=== PATIENT | female | born 1960 | race Caucasian/White ===

== ENCOUNTER 2016-12-30 15:04 | Emergency (ER) | payer OTHER ==
[2016-12-30 15:34] VITALS: BP 140/86
--- OUTSIDE RECORDS SUMMARY | 2016-12-30 16:34 | XMS REPORT | Summary of Care ---
:1960 Author Organization [facility] Address [address] [place] [address] Care Team Providers Name Role Phone Gabrielle Smallwood Primary Care Physician Encounter Date(s): 12/02/16 - 12/02/16 [facility], [address] [facility] [place], [place] [address] Discharge Disposition: 01 Discharged to Home or Self Care Attending Physician: Cori Mendoza DPM Referring Physician: Cori Mendoza DPM Vital Signs Most recent to oldest [Reference Range]: 1 Peripheral Pulse Rate [60-100 bpm] 116 bpm *HI* (12/02/16 10:11 AM) Blood Pressure [90-130/60-90 mmHg] 143/91mmHg *HI* (12/02/16 10:11 AM) Mean Arterial Pressure, Cuff 108 mmHg (12/02/16 10:11 AM) Most recent to oldest [Reference Range]: 1 Height/Length Measured 175 cm (12/02/16 10:11 AM) Weight Dosing 139.00 kg1 (12/02/16 10:15 AM) Weight Measured 139 kg (12/02/16 10:11 AM) BSA Measured 2.47 m2 (12/02/16 10:11 AM) Body Mass Index Measured 45.39 kg/m2 (12/02/16 10:11 AM) 1Result Comment: This result was because the dosing weight was either not entered or it is>30 days old. This result is based off: Weight Measured December 02, 2016 10:11:00 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 by Azeb Ch LPN Problem List Condition Effective Dates Status Health Status Informant Anxiety(Confirmed) Active patient Arthritis(Confirmed) Active patient Asthma(Confirmed) Active patient Depression(Confirmed) Active Fibromyalgia(Confirmed) Active patient Migraine(Confirmed) Active patient Wheezing(Confirmed) Active Allergies, Adverse Reactions, Alerts Substance Reaction Severity Status codeine Nausea Active Dilaudid Rash Severe Active gabapentin nausea Severe Active Toradol Nausea Severe Active Medications albuterol 2.5 mg/3 mL (0.083%) inhalation solution 3 mL, Inhale, q6hr, # 360 mL, 2 Refill(s), Start Date: 10/06/16 14:00:04 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, Pharmacy: [facility] Start Date: 10/06/16 Stop Date: 01/04/17 Status: Orderedalbuterol 2.5 mg/3 mL (0.083%) inhalation solution 3 mL, Inhale, q6hr, X 30 days, # 25 EA, 0 Refill(s), Start Date: 06/09/16 16:07: 01 CDT, Pharmacy: [facility] Start Date: 06/09/16 Stop Date: 10/06/16 Status: Completedalbuterol 2.5 mg/3 mL (0.083%) inhalation solution 3 mL, Inhale, q6hr, # 25 EA, 0 Refill(s), Start Date: 12/16/15 20:03:00 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 Start Date: 12/16/15 Stop Date: 06/09/16 Status: Discontinuedalbuterol HFA puff(s), Inhale, QID, 0 Refill(s), Start Date: 09/25/15 13:27:00 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 Start Date: 09/25/15 Stop Date: 03/10/16 Status: Completedamitriptyline 10 mg oral tablet 1 tab(s), Oral, HS, 0 Refill(s), Start Date: 07/26/14 8:18:00 CDT Start Date: 07/26/14 Stop Date: 09/21/16 Status: CompletedAugmentin 875 mg-125 mg oral tablet 875 mg, Oral, q12hr interval, # 20 tab(s), 0 Refill(s), Start Date: 07/20/16 17: 32:00 CDT, Pharmacy: [facility] Start Date: 07/20/16 Stop Date: 07/30/16 Status: DiscontinuedAzithromycin 5 Day Dose Pack 250 mg oral tablet 1 packet(s), Oral, Per Package Label, as directed on package labeling, X 5 days , # 6 tab(s), 0 Refill(s), Start Date: 12/01/16 15:05:00 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 Special Instructions: as directed on package labeling Start Date: 12/01/16 Stop Date: 12/06/16 Status: OrderedbusPIRone 10 mg oral tablet 1 tab(s), Oral, TID, # 90 tab(s), 0 Refill(s), Start Date: 03/10/16 13:27:00 CDT Start Date: 03/10/16 Status: Orderedcephalexin 500 mg oral capsule 1 cap(s), Oral, QID, # 40 cap(s), 0 Refill(s), Start Date: 09/21/16 15:32:00 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 , Pharmacy: [facility] Start Date: 09/21/16 Stop Date: 10/13/16 Status: Completedclindamycin 300 mg oral capsule 1 cap(s), Oral, q6hr, # 28 cap(s), 0 Refill(s), Start Date: 12/17/14 14:47:00 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 Start Date: 12/17/14 Stop Date: 02/25/15 Status: Completedclotrimazole 1% topical cream 1 maxwell, Topical, BID, # 30 gm, 0 Refill(s), Start Date: 06/03/16 18:02:00 CDT Start Date: 06/03/16 Stop Date: 06/04/16 Status: Completedcyclobenzaprine 10 mg, Oral, BID, 0 Refill(s) Start Date: 06/01/14 Stop Date: 07/27/16 Status: CompletedDexilant 60 mg oral delayed release capsule 1 cap(s), Oral, Daily, # 30 cap(s), 5 Refill(s), Start Date: 04/28/16 16:03:00 CDT, Pharmacy: [facility] Start Date: 04/28/16 Stop Date: 06/09/16 Status: Completeddiclofenac 1% topical gel 1 maxwell, Topical, QID, # 100 gm, 0 Refill(s), Start Date: 06/27/15 10:56:00 CDT, Pharmacy: [facility] Start Date: 06/27/15 Stop Date: 03/10/16 Status: CompletedDilaudid 2 mg oral tablet 1 tab(s), Oral, q8hr interval, PRN for pain, # 12 tab(s), 0 Refill(s), Start Date: 10/22/16 19:09:00 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 Start Date: 10/22/16 Stop Date: 10/31/16 Status: CompletedDilaudid 2 mg oral tablet 1 tab(s), Oral, q4hr, PRN for pain, # 12 tab(s), 0 Refill(s), Start Date: 16:54:00 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 Start Date: 10/31/16 Stop Date: 12/01/16 Status: CompletedDME - Nebulizer 1 EA, NEB, 12/16/15, Criteria in Order Comments Met?, # 1 EA, 0 Refill(s), 20:03:00 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, Supply Start Date: 12/16/15 Status: OrderedFlexeril 10 mg oral tablet 1 tab(s), Oral, BID, Start Date: 07/27/16 15:49:00 CDT Start Date: 07/27/16 Status: OrderedHYDROcodone-acetaminophen 5 mg-325 mg oral tablet 1 tab(s), Oral, q6hr, X 3 days, # 12 tab(s), 0 Refill(s), Start Date: 02/25/15 13:13:00 CDT Start Date: 02/25/15 Stop Date: 02/28/15 Status: CompletedHYDROcodone-acetaminophen 5 mg-325 mg oral tablet 2 tab(s), Oral, q6hr, X 3 days, # 15 tab(s), 0 Refill(s), Start Date: 11/26/14 14:42:00 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 Start Date: 11/26/14 Stop Date: 11/29/14 Status: CompletedHYDROcodone-acetaminophen 5 mg-325 mg oral tablet 1 tab(s), Oral, q6hr interval, PRN for pain, X 3 days, # 12 tab(s), 0 Refill(s) , Start Date: 01/13/16 19:53:00 CDT Start Date: 01/13/16 Stop Date: 01/16/16 Status: CompletedHYDROcodone-acetaminophen 5 mg-325 mg oral tablet 1 tab(s), Oral, q6hr, PRN for pain, # 12 tab(s), 0 Refill(s), Start Date: 21:57:00 CDT Start Date: 01/22/15 Stop Date: 01/24/15 Status: CompletedHYDROcodone-acetaminophen 5mg-325mg oral tablet 1 tab(s), Oral, TID, PRN for pain, X 3 days, # 9 tab(s), 0 Refill(s), Start Date : 07/27/16 15:31:00 CDT Start Date: 07/27/16 Stop Date: 07/30/16 Status: CompletedHYDROcodone-acetaminophen 5mg-325mg oral tablet 1 tab(s), Oral, q4hr, PRN pain moderate 4-7, X 5 days, # 15 tab(s), 0 Refill(s) , Start Date: 10/22/16 20:47:00 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 Start Date: 10/22/16 Stop Date: 10/27/16 Status: Completedhydrocodone-acetaminophen 5mg-325mg oral tablet 2 tab(s), Oral, q4hr, PRN for pain, # 20 tab(s), 0 Refill(s), Start Date: 17:11:00 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 Start Date: 10/31/16 Stop Date: 11/03/16 Status: Discontinuedibuprofen 800 mg oral tablet 1 tab(s), Oral, TID, PRN for pain, # 30 tab(s), 0 Refill(s), Start Date: 19:39:00 CDT Start Date: 03/13/14 Stop Date: 09/10/14 Status: Completedibuprofen 800 mg oral tablet 1 tab(s), Oral, TID, # 30 tab(s), 0 Refill(s), Start Date: 09/25/15 13:32:00 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 , Pharmacy: [facility] Start Date: 09/25/15 Stop Date: 03/10/16 Status: Completedibuprofen 800 mg oral tablet 1 tab(s), Oral, q6hr interval, PRN for pain, # 60 tab(s), 0 Refill(s), Start Date: 09/10/14 14:35:47 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, 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) Start Date: 09/10/14 Stop Date: 10/08/14 Status: Completedibuprofen 800 mg oral tablet 1 tab(s), Oral, q6hr interval, PRN for pain, # 30 tab(s), 0 Refill(s), Start Date: 10/08/14 11:29:36 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, Pharmacy: [facility] [id number] Start Date: 10/08/14 Stop Date: 10/29/14 Status: Completedibuprofen 800 mg oral tablet 1 tab(s), Oral, TID, PRN for pain, # 30 tab(s), 0 Refill(s), Start Date: 10:05:00 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, Pharmacy: [facility] Start Date: 12/05/14 Stop Date: 03/10/16 Status: Completedibuprofen 800 mg oral tablet 1 tab(s), Oral, TID, # 30 tab(s), 0 Refill(s), Start Date: 08/26/16 8:54:00 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 , Pharmacy: [facility] Start Date: 08/26/16 Stop Date: 12/01/16 Status: Completedindomethacin 50 mg oral capsule 1 cap(s), Oral, TID, PRN for pain, X 10 days, # 30 cap(s), 0 Refill(s), Start Date: 10/13/16 17:12:00 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 Start Date: 10/13/16 Stop Date: 10/23/16 Status: CompletedLevaquin 750 mg oral tablet 1 tab(s), Oral, q24hr interval, # 7 tab(s), 0 Refill(s), Start Date: 04/28/16 15 :56:00 CDT, Pharmacy: [facility] Start Date: 04/28/16 Stop Date: 06/09/16 Status: Completedlisinopril 10 mg oral tablet 1 tab(s), Oral, Daily, # 30 tab(s), 5 Refill(s), Start Date: 10/22/16 16:07:58 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, Pharmacy: [facility] Start Date: 10/22/16 Status: Orderedlisinopril 10 mg oral tablet 1 tab(s), Oral, Daily, # 30 tab(s), 5 Refill(s), Start Date: 04/28/16 15:59:00 CDT, Pharmacy: [facility] Start Date: 04/28/16 Stop Date: 10/22/16 Status: CompletedMedrol Dosepak 4 mg oral tablet 1 packet(s), Oral, Per Package Label, as directed on package labeling, X 6 days , # 21 tab(s), 0 Refill(s), Start Date: 10/13/16 17:12:00 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 Special Instructions: as directed on package labeling Start Date: 10/13/16 Stop Date: 10/19/16 Status: Completedmeloxicam 15 mg, Oral, Daily, 0 Refill(s) Start Date: 06/01/14 Stop Date: 07/27/16 Status: Completedmeloxicam 15 mg oral tablet 1 tab(s), Oral, Daily, Start Date: 07/27/16 15:49:00 CDT Start Date: 07/27/16 Status: OrderedNorco 5 mg-325 mg oral tablet See Instructions, 1-2tab(s) Oral q4-6hr prn pain, # 60 tab(s), 0 Refill(s), Start Date: 05/03/15 9:04:44 CDT Special Instructions: 1-2tab(s) Oral q4-6hr prn pain Start Date: 05/03/15 Stop Date: 05/13/15 Status: CompletedNorco 5 mg-325 mg oral tablet See Instructions, 1-2 po Q 4-6 hrs prn pain, # 60 tab(s), 0 Refill(s), Start Date: 09/16/16 12:26:21 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, Pharmacy: [facility] Special Instructions: 1-2 po Q 4-6 hrs prn pain Start Date: 09/16/16 Stop Date: 09/23/16 Status: CompletedNorco 5 mg-325 mg oral tablet 2 tab(s), Oral, q6hr, PRN for pain, # 30 tab(s), 0 Refill(s), Start Date: 10:14:00 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, Pharmacy: [facility] [id number] Start Date: 10/01/14 Stop Date: 10/08/14 Status: CompletedNorco 5 mg-325 mg oral tablet 1 tab(s), Oral, q4hr, PRN for pain, # 10 tab(s), 0 Refill(s), Start Date: 22:44:00 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 Start Date: 08/20/15 Stop Date: 08/24/15 Status: CompletedNorco 5 mg-325 mg oral tablet See Instructions, 1 po Q 4-6 hrs prn pain, # 30 tab(s), 0 Refill(s), Start Date : 09/08/16 10:59:35 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, Pharmacy: [facility] Special Instructions: 1 po Q 4-6 hrs prn pain Start Date: 09/08/16 Stop Date: 09/14/16 Status: CompletedNorco 5 mg-325 mg oral tablet 1 tab(s), Oral, q4hr, # 30 tab(s), 0 Refill(s), Start Date: 06/05/15 11:12:00 CDT, Pharmacy: [facility] Start Date: 06/05/15 Stop Date: 06/26/15 Status: DiscontinuedNorco 5 mg-325 mg oral tablet 1 tab(s), Oral, q6hr, # 40 tab(s), 0 Refill(s), Start Date: 08/17/16 12:42:00 CDT, Pharmacy: [facility] Start Date: 08/17/16 Stop Date: 08/26/16 Status: CompletedNorco 5 mg-325 mg oral tablet See Instructions, 1-2tab(s) Oral q4-6hr prn pain, # 60 tab(s), 0 Refill(s), Start Date: 04/23/15 11:36:00 CDT Special Instructions: 1-2tab(s) Oral q4-6hr prn pain Start Date: 04/23/15 Stop Date: 05/03/15 Status: CompletedNorco 5 mg-325 mg oral tablet 1 tab(s), Oral, q6hr interval, PRN pain moderate 4-7, Use sparingly, # 60 tab(s) , 0 Refill(s), Start Date: 09/23/16 14:55:00 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, Pharmacy: [facility] Special Instructions: Use sparingly Start Date: 09/23/16 Stop Date: 10/01/16 Status: DiscontinuedNorco 5 mg-325 mg oral tablet See Instructions, 1-2 tab(s) Oral q6hr PRN pain, # 30 tab(s), 0 Refill(s), Start Date: 08/27/14 10:45:01 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, other reason (Rx) Special Instructions: 1-2 tab(s) Oral q6hr PRN pain Start Date: 08/27/14 Stop Date: 09/03/14 Status: CompletedNorco 5 mg-325 mg oral tablet 1 tab(s), Oral, q4hr, PRN for pain, X 3 days, # 15 tab(s), 0 Refill(s), Start Date: 09/04/16 17:08:00 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 Start Date: 09/04/16 Stop Date: 09/07/16 Status: CompletedNorco 5 mg-325 mg oral tablet See Instructions, 1 po Q 4-6 hrs prn pain, # 12 tab(s), 0 Refill(s), Start Date : 09/14/16 11:50:00 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, Pharmacy: [facility] Special Instructions: 1 po Q 4-6 hrs prn pain Start Date: 09/14/16 Stop Date: 09/16/16 Status: CompletedNorco 5 mg-325 mg oral tablet 1 tab(s), Oral, q6hr, # 40 tab(s), 0 Refill(s), Start Date: 08/07/16 11:55:00 CDT, Pharmacy: [facility] Start Date: 08/07/16 Stop Date: 08/17/16 Status: CompletedNorco 5 mg-325 mg oral tablet 1 tab(s), Oral, q4hr, # 30 tab(s), 0 Refill(s), Start Date: 07/17/15 10:26:00 CDT, Pharmacy: [facility] Start Date: 07/17/15 Stop Date: 09/25/15 Status: CompletedNorco 5 mg-325 mg oral tablet 1 tab(s), Oral, q6hr, PRN for pain, # 30 tab(s), 0 Refill(s), Start Date: 11:02:00 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, Pharmacy: [facility] Start Date: 10/29/14 Stop Date: 12/05/14 Status: CompletedNorco 5 mg-325 mg oral tablet See Instructions, 1-2tab(s) Oral q4-6hr prn pain, # 50 tab(s), 0 Refill(s), Start Date: 05/13/15 9:54:50 CDT, Pharmacy: [facility] Special Instructions: 1-2tab(s) Oral q4-6hr prn pain Start Date: 05/13/15 Stop Date: 05/20/15 Status: CompletedNorco 5 mg-325 mg oral tablet 1 tab(s), Oral, q6hr interval, not to exceed 8 tablets/day, # 40 tab(s), 0 Refill(s), Start Date: 10/01/16 11:17:00 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, Pharmacy: [facility] Special Instructions: not to exceed 8 tablets/day Start Date: 10/01/16 Stop Date: 10/13/16 Status: CompletedNorco 5 mg-325 mg oral tablet 2 tab(s), Oral, q6hr, PRN for pain, # 45 tab(s), 0 Refill(s), Start Date: 11:52:05 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, other reason (Rx) Start Date: 10/15/14 Stop Date: 10/29/14 Status: CompletedNorco 5 mg-325 mg oral tablet 1 tab(s), Oral, q6hr interval, PRN for pain, # 30 tab(s), 0 Refill(s), Start Date: 06/17/15 10:34:42 CDT, Pharmacy: [facility] Start Date: 06/17/15 Stop Date: 06/26/15 Status: DiscontinuedNorco 5 mg-325 mg oral tablet 1 tab(s), Oral, q6hr interval, # 30 tab(s), 0 Refill(s), Start Date: 10/15/16 16 :23:00 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, Pharmacy: [facility] Start Date: 10/15/16 Stop Date: 10/31/16 Status: CompletedNorco 5 mg-325 mg oral tablet 1 tab(s), Oral, q6hr, # 40 tab(s), 0 Refill(s), Start Date: 07/30/16 10:06:00 CDT, Pharmacy: [facility] Start Date: 07/30/16 Stop Date: 08/07/16 Status: CompletedNorco 5 mg-325 mg oral tablet 1 tab(s), Oral, q6hr, PRN for pain, # 30 tab(s), 0 Refill(s), Start Date: 11:00:00 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, Pharmacy: [facility] [id number] Start Date: 10/29/14 Stop Date: 10/29/14 Status: DiscontinuedNorco 5 mg-325 mg oral tablet 2 tab(s), Oral, q6hr, PRN for pain, # 30 tab(s), 0 Refill(s), Start Date: 11:30:02 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, other reason (Rx) Start Date: 10/08/14 Stop Date: 10/15/14 Status: CompletedNorco 5 mg-325 mg oral tablet See Instructions, 1-2 tab(s) Oral q6hr PRN pain, # 40 tab(s), 0 Refill(s), Start Date: 09/03/14 15:24:06 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, other reason (Rx) Special Instructions: 1-2 tab(s) Oral q6hr PRN pain Start Date: 09/03/14 Stop Date: 10/29/14 Status: CompletedNorco 5 mg-325 mg oral tablet See Instructions, 1-2 tab(s) Oral q4-6hr PRN pain, # 30 tab(s), 0 Refill(s), Start Date: 08/20/14 15:25:27 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, other reason (Rx) Special Instructions: 1-2 tab(s) Oral q4-6hr PRN pain Start Date: 08/20/14 Stop Date: 08/27/14 Status: CompletedNorco 5 mg-325 mg oral tablet 1 tab(s), Oral, q6hr, # 30 tab(s), 0 Refill(s), Start Date: 08/26/16 8:54:54 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 , Pharmacy: [facility] Start Date: 08/26/16 Stop Date: 09/08/16 Status: CompletedNorco 5 mg-325 mg oral tablet See Instructions, 1-2 tab(s) Oral q4-6hr PRN pain, # 30 tab(s), 0 Refill(s), Start Date: 08/14/14 8:40:00 CDT Special Instructions: 1-2 tab(s) Oral q4-6hr PRN pain Start Date: 08/14/14 Stop Date: 08/20/14 Status: CompletedNorco 5 mg-325 mg oral tablet 1 tab(s), Oral, q4hr, PRN for pain, # 40 tab(s), 0 Refill(s), Start Date: 11:30:00 CDT, Pharmacy: [facility] Start Date: 06/10/15 Stop Date: 06/17/15 Status: Completedomeprazole 40 mg oral delayed release capsule 1 cap(s), Oral, Daily, 0 Refill(s), Start Date: 06/09/16 15:12:00 CDT Start Date: 06/09/16 Stop Date: 08/17/16 Status: Discontinuedomeprazole 40 mg oral delayed release capsule 1 cap(s), Oral, Daily, # 30 cap(s), 4 Refill(s), Start Date: 03/10/16 14:24:00 CDT, Pharmacy: [facility] Start Date: 03/10/16 Stop Date: 04/28/16 Status: Discontinuedomeprazole 40 mg oral delayed release capsule 1 cap(s), Oral, Daily, # 30 cap(s), 3 Refill(s), Start Date: 08/17/16 13:57:00 CDT, Pharmacy: [facility] Start Date: 08/17/16 Stop Date: 12/15/16 Status: Orderedorphenadrine 100 mg oral tablet, extended release 1 tab(s), Oral, BID, # 10 tab(s), 0 Refill(s), Start Date: 07/10/15 19:44:00 CDT Start Date: 07/10/15 Stop Date: 03/10/16 Status: Completedpenicillin V potassium 500 mg oral tablet 1 tab(s), Oral, TID, X 7 days, # 21 tab(s), 0 Refill(s), Start Date: 11/26/14 14 :42:00 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 Start Date: 11/26/14 Stop Date: 12/03/14 Status: Completedpenicillin V potassium 500 mg oral tablet 1 tab(s), Oral, TID, # 30 tab(s), 0 Refill(s), Start Date: 01/13/16 19:53:00 CDT Start Date: 01/13/16 Stop Date: 03/10/16 Status: CompletedPercocet 5/325 oral tablet 1 tab(s), Oral, q4hr, PRN for pain, Do not work or drive with this medication, # 6 tab(s), 0 Refill(s), Start Date: 12/17/14 14:47:00 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 Special Instructions: Do not work or drive with this medication Start Date: 12/17/14 Stop Date: 12/19/14 Status: CompletedPercocet 5/325 oral tablet 1 tab(s), Oral, q6hr, PRN for pain, X 3 days, # 12 tab(s), 0 Refill(s), Start Date: 07/21/16 20:10:00 CDT Start Date: 07/21/16 Stop Date: 07/24/16 Status: CompletedPercocet 5/325 oral tablet 2 tab(s), Oral, q4hr, # 60 tab(s), 0 Refill(s), Start Date: 05/20/15 8:25:00 CDT , Pharmacy: [facility] Start Date: 05/20/15 Stop Date: 05/29/15 Status: CompletedPercocet 5/325 oral tablet 2 tab(s), Oral, q4hr, # 40 tab(s), 0 Refill(s), Start Date: 05/29/15 14:40:46 CDT, Pharmacy: [facility] Start Date: 05/29/15 Stop Date: 06/05/15 Status: DiscontinuedPercocet 5/325 oral tablet 1 tab(s), Oral, q6hr interval, X 3 days, # 12 tab(s), 0 Refill(s), Start Date: 05/17/15 14:18:00 CDT Start Date: 05/17/15 Stop Date: 05/20/15 Status: Completedpramipexole 0.125 mg oral tablet 1 tab(s), Oral, HS, may increase in 1 week to two tabs., # 30 tab(s), 1 Refill(s ), Start Date: 07/17/16 14:03:00 CDT, Pharmacy: [facility] Special Instructions: may increase in 1 week to two tabs. Start Date: 07/17/16 Stop Date: 09/04/16 Status: CompletedpredniSONE 10 mg oral tablet See Instructions, 40mg daily x 3d, 30mg daily x 3d, 20mg daily x 3d, 10mg daily x 3d, # 30 tab(s), 0 Refill(s), Start Date: 07/20/16 17:33:00 CDT, Pharmacy: [facility] Special Instructions: 40mg daily x 3d, 30mg daily x 3d, 20mg daily x 3d, 10mg daily x 3d Start Date: 07/20/16 Stop Date: 07/30/16 Status: DiscontinuedpredniSONE 10 mg oral tablet See Instructions, 40 mg qd x 3d, 30 mg qd x 3d, 20 mg qd x 3d, 10 mg qd x 3d. with food, # 30 QS, 0 Refill(s), Start Date: 04/28/16 15:56:00 CDT, Pharmacy: [facility] Special Instructions: 40 mg qd x 3d, 30 mg qd x 3d, 20 mg qd x 3d, 10 mg qd x 3d. with food Start Date: 04/28/16 Stop Date: 06/09/16 Status: CompletedpredniSONE 20 mg oral tablet 2 tab(s), Oral, Daily, X 5 days, # 10 tab(s), 0 Refill(s), Start Date: 12/01/16 15:05:00 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 Start Date: 12/01/16 Stop Date: 12/06/16 Status: OrderedpredniSONE 50 mg oral tablet 1 tab(s), Oral, Daily, # 4 tab(s), 0 Refill(s), Start Date: 04/18/16 17:03:00 CDT Start Date: 04/18/16 Stop Date: 04/28/16 Status: Completedpromethazine-codeine 6.25 mg-10 mg/5 mL oral syrup 5 mL, Oral, HS, PRN for cough, # 30 mL, 0 Refill(s), Start Date: 04/17/16 17:04: 00 CDT Start Date: 04/17/16 Stop Date: 04/22/16 Status: CompletedReadi-Cat 2 oral suspension See Instructions, Oral ONETIME, # 2 bottles, 0 Refill(s), Start Date: 06/29/16 10:57:00 CDT, Pharmacy: [facility] Special Instructions: Oral ONETIME Start Date: 06/29/16 Stop Date: 07/27/16 Status: CompletedRequip 0.25 mg oral tablet 1 tab(s), Oral, Daily, take one at hs about 30 minutes prior to hs, may increase to 2 po at night after 3-5 days. with food, # 45 tab(s), 3 Refill(s) , Start Date: 06/09/16 16:13:00 CDT, Pharmacy: [facility] Special Instructions: take one at hs about 30 minutes prior to hs, may increase to 2 po at night after 3-5 days. with food Start Date: 06/09/16 Stop Date: 09/04/16 Status: CompletedSingulair 10 mg oral tablet 1 tab(s), Oral, Daily, # 30 tab(s), 5 Refill(s), Start Date: 06/09/16 16:23:00 CDT, [facility] Start Date: 06/09/16 Status: OrderedSpiriva 18 mcg inhalation capsule 1 cap(s), Inhale, Daily, use two inhalations of one capsule for each dose, X 30 days, # 30 EA, 2 Refill(s), Start Date: 05/29/16 14:08:00 CDT, [facility] Special Instructions: use two inhalations of one capsule for each dose Start Date: 05/29/16 Stop Date: 08/27/16 Status: CompletedSpiriva 18 mcg inhalation capsule 1 cap(s), Inhale, Daily, use two inhalations of one capsule for each dose, # 30 cap(s), 5 Refill(s), Start Date: 08/27/16 7:35:04 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, Pharmacy: [facility] Special Instructions: use two inhalations of one capsule for each dose Start Date: 08/27/16 Stop Date: 02/23/17 Status: OrderedSpiriva Respimat 2.5 mcg/inh inhalation aerosol 2 puff(s), Inhale, Daily, # 1 EA, 3 Refill(s), Start Date: 05/29/16 13:05:08 CDT , Pharmacy: [facility], [id number], 06/16/17 Start Date: 05/29/16 Stop Date: 06/09/16 Status: CompletedSpiriva Respimat 2.5 mcg/inh inhalation aerosol 2 puff(s), Inhale, Daily, # 4 gm, 0 Refill(s), Start Date: 04/28/16 16:19:00 CDT , samples given to patient (Rx), [id number], 06/16/17 Start Date: 04/28/16 Stop Date: 05/29/16 Status: CompletedSymbicort 160 mcg-4.5 mcg/inh inhalation aerosol 2 puff(s), Inhale, BID, # 1 EA, 3 Refill(s), Start Date: 03/27/16 13:01:00 CDT, Pharmacy: [facility] Start Date: 03/27/16 Stop Date: 07/25/16 Status: OrderedtraMADol 50 mg oral tablet 1 tab(s), Oral, q4hr, PRN for pain, # 24 tab(s), 0 Refill(s), Start Date: 16:24:00 CDT Start Date: 06/01/14 Stop Date: 09/10/14 Status: CompletedtraMADol 50 mg oral tablet 1 tab(s), Oral, q4hr interval, # 30 tab(s), 0 Refill(s), Start Date: 12/02/16 11 :05:00 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, Pharmacy: [facility] Start Date: 12/02/16 Status: OrderedtraMADol 50 mg oral tablet See Instructions, PRN for pain, 1-2 tab(s) Oral q4-6hr interval, # 45 tab(s), 1 Refill(s), Start Date: 11/06/14 10:10:50 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, 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) Special Instructions: 1-2 tab(s) Oral q4-6hr interval Start Date: 11/06/14 Stop Date: 11/12/14 Status: CompletedtraMADol 50 mg oral tablet 1 tab(s), Oral, q12hr, PRN pain severe 8-10, # 30 tab(s), 0 Refill(s), Start Date: 06/26/15 13:56:00 CDT, Pharmacy: [facility] Start Date: 06/26/15 Stop Date: 07/17/15 Status: CompletedtraMADol 50 mg oral tablet 1 tab(s), Oral, q6hr interval, PRN for pain, # 60 tab(s), 0 Refill(s), Start Date: 09/10/14 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:17 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, 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) Start Date: 09/10/14 Stop Date: 10/23/14 Status: CompletedtraMADol 50 mg oral tablet 1 tab(s), Oral, q4hr, PRN for pain, # 40 tab(s), 0 Refill(s), Start Date: 13:05:00 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, 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: [facility] Start Date: 08/26/15 Stop Date: 09/25/15 Status: CompletedtraMADol 50 mg oral tablet See Instructions, PRN for pain, 1-2 tab(s) Oral q4-6hr interval, # 45 tab(s), 1 Refill(s), Start Date: 10/23/14 10:48:21 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, 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) Special Instructions: 1-2 tab(s) Oral q4-6hr interval Start Date: 10/23/14 Stop Date: 11/06/14 Status: CompletedtraMADol 50 mg oral tablet 1 tab(s), Oral, q12hr, PRN for pain, # 30 tab(s), 0 Refill(s), Start Date: 12/05 10:05:00 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, 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: [facility] Start Date: 12/05/14 Stop Date: 12/13/14 Status: CompletedtraMADol 50 mg oral tablet See Instructions, 1-2 tab(s) mg Oral q4-6hr PRN pain, # 40 tab(s), 0 Refill(s), Start Date: 07/22/15 14:46:00 CDT Special Instructions: 1-2 tab(s) mg Oral q4-6hr PRN pain Start Date: 07/22/15 Stop Date: 09/25/15 Status: CompletedtraMADol 50 mg oral tablet See Instructions, PRN for pain, 1-2 tab(s) Oral q4-6hr interval, # 45 tab(s), 0 Refill(s), Start Date: 11/12/14 14:53:03 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, 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) Special Instructions: 1-2 tab(s) Oral q4-6hr interval Start Date: 11/12/14 Stop Date: 05/20/15 Status: CompletedtraMADol 50 mg oral tablet 1 tab(s), Oral, q12hr, PRN for pain, # 30 tab(s), 0 Refill(s), Start Date: 12/13 14:43:11 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, Pharmacy: [facility] Start Date: 12/13/14 Stop Date: 05/20/15 Status: CompletedTylenol with Codeine #3 oral tablet 2 tab(s), Oral, q6hr, # 16 tab(s), 0 Refill(s) Start Date: 03/13/14 Stop Date: 03/15/14 Status: CompletedValium 5 mg oral tablet 1 tab(s), Oral, QID, PRN for anxiety, X 7 days, # 28 tab(s), 0 Refill(s), Start Date: 10/13/16 17:12:00 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 Start Date: 10/13/16 Stop Date: 10/20/16 Status: Completedvenlafaxine 25 mg, Oral, BID, 0 Refill(s) Start Date: 06/01/14 Stop Date: 07/27/16 Status: Completedvenlafaxine 25 mg oral tablet 1 tab(s), Oral, BID, Start Date: 07/27/16 15:50:00 CDT Start Date: 07/27/16 Stop Date: 10/13/16 Status: Completedvenlafaxine 25 mg oral tablet 1 tab(s), Oral, TID, # 90 tab(s), 0 Refill(s), Start Date: 10/13/16 15:46:00 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 Start Date: 10/13/16 Status: OrderedVentolin HFA 90 mcg/inh inhalation aerosol 2 puff(s), Inhale, q4hr, PRN for wheezing, # 1 EA, 3 Refill(s), Start Date: 16:07:00 CDT, Pharmacy: [facility] Start Date: 06/09/16 Status: OrderedVentolin HFA 90 mcg/inh inhalation aerosol 2 puff(s), Inhale, q4hr, PRN for wheezing, # 8 gm, 0 Refill(s), Start Date: 13:26:00 CDT Start Date: 03/10/16 Stop Date: 06/09/16 Status: DiscontinuedVicodin 5 mg-325 mg oral tablet 1-2, Oral, q4hr, X 5 days, # 15 tab(s), 0 Refill(s) Start Date: 07/23/14 Stop Date: 07/26/14 Status: CompletedVicodin 5 mg-325 mg oral tablet 1-2, Oral, q4hr, # 40 tab(s), 0 Refill(s), other reason (Rx) Start Date: 07/26/14 Stop Date: 08/02/14 Status: CompletedVicodin 5 mg-325 mg oral tablet 1-2, Oral, q4hr, # 30 tab(s), 0 Refill(s), other reason (Rx) Start Date: 08/02/14 Stop Date: 08/12/14 Status: CompletedVitamin D3 50,000 intl units oral capsule 1 cap(s), Oral, q7days, # 8 cap(s), 0 Refill(s), Start Date: 05/20/15 8:25:00 CDT, Pharmacy: [facility] Start Date: 05/20/15 Stop Date: 07/17/15 Status: CompletedZithromax Z-Carmelo 250 mg oral tablet 1 packet(s), Oral, Per Package Label, as directed on package labeling, # 6 tab(s ), 0 Refill(s), Start Date: 04/17/16 17:02:00 CDT Special Instructions: as directed on package labeling Start Date: 04/17/16 Stop Date: 04/28/16 Status: CompletedZofran 4 mg oral tablet 1 tab(s), Oral, TID, PRN nausea/vomiting, # 10 tab(s), 0 Refill(s) Start Date: 06/01/14 Stop Date: 07/17/15 Status: Completed Results No data available for this section Immunizations Vaccine Date Refusal Reason influenza virus vaccine, inactivated 09/04/16 Procedures Procedure Date Related Diagnosis Body Site Arthroscopy Knee (Left)1 09/16/16 Colonoscopy2 08/21/16 Esophagogastroduodenoscopy3 08/21/16 Extraction4 Procedure on bone of ankle Procedure on knee - left - tendon repair Tubal ligation 1auto-populated from documented surgical [id number] from documented surgical [id number] from documented surgical [id number] Social History No data available for this section Assessment and Plan No data available for this section
--- OUTSIDE RECORDS SUMMARY | 2016-12-30 16:34 | XMS REPORT | Continuity of Care Document ---
:1960 Author Organization [facility] ([facility]) Address [address] [place] [address] Phone [phone] Care Team Providers Name Role Phone Ford Holland Primary Care Provider [phone] Source Comments This disclosure is being made pursuant to the Care Everywhere program, applicable federal and state laws, and may not contain all informaitonavailable regarding this patient.[facility] ([facility]) Active Allergies and Adverse Reactions Allergen Noted Date Severity Reactions Comments Benzonatate Nausea & Vomiting Ketorolac Tromethamine Nausea & Vomiting,OTHER light headedness Current Medications Prescription Sig. Disp. Refills Start Date End Date Status Ibuprofen 200 mg cap Take 200 mg by Active mouth every 6 hours. amitriptyline 25 mg Take 2 Tabs by 120 Tab 3 11/09/2013 Active tablet mouth at bedtime. Indications: FIBROMYALGIA meloxicam 7.5 mg tablet Take 1-2 Tabs by 90 Tab 0 12/06/2013 Active mouth daily. Has tolerated NSAID fine without SE. Indications: L LBP cyclobenzaprine 10 mg Take 1 Tab by mouth 90 Tab 1 12/06/2013 Active tablet 3 times daily as needed. Indications: FIBROMYALGIA traMADol 50 mg tablet Take 1-2 Tabs by 128 Tab 0 01/24/2014 Active mouth 4 times daily as needed. Indications: FIBROMYALGIA Active Problems Problem Noted Date HTN (hypertension) 04/15/2012 Obesity, unspecified 04/15/2012 Left knee pain 04/15/2012 Fibromyalgia 04/15/2012 Breast cancer screening 04/15/2012 Colon cancer screening 04/15/2012 Anxiety state, unspecified 04/15/2012 Depression 04/15/2012 Immunizations Name Dates Previously Given Next Due Influenza, quadrivalent PF 10/17/2013 Influenza, unspecified 08/16/2007 Tdap 04/15/2012 Social History Tobacco Use Types Packs/Day Years Used Date Current Some Day Smoker Cigarettes 0.25 Smokeless Tobacco: Never Used Tobacco Cessation:Ready to Quit: No; Counseling Given: Yes Comments: Alcohol Use Drinks/Week oz/Week Comments Yes occasional-several beers a week Last Filed Vital Signs Vital Sign Reading Time Taken Blood Pressure 130/78 10/17/2013 9:00 AM 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 Pulse 100 10/17/2013 9:00 AM 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 Temperature 36.3 C (97.3 F) 10/17/2013 9:00 AM 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 Respiratory Rate 18 02/20/2011 11:00 AM CDT Height 1.721 m (5' 7.75") 04/15/2012 10:30 AM CDT Weight 113.218 kg (249 lb 9.6 oz) 10/17/2013 9:00 AM 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 Body Mass Index 38.23 10/17/2013 9:00 AM 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 Oxygen Saturation 95% 02/20/2011 11:00 AM CDT Plan of Care Patient Goal Type Goal Blood Pressure Blood Pressure below 140/90 Lifestyle Quit smoking / using tobacco Health Maintenance Due Date Last Done Comments HCV Screening 1960 Hepatitis B Vaccine (1 of 3 - Primary 1960 Series) MMR Vaccine 1977 Pneumococcal Vaccine (1 of 1 - 1978 PPSV23) Mammogram 1999 FOBT Colon Cancer Screening 2009 Influenza Vaccine: Seasonal (#1) 05/18/2016 10/17/2013, 08/16/2007 Cervical Cancer Screening 10/17/2018 10/17/2013 Lipid Disorder Screening 10/17/2018 10/17/2013 Td Vaccine 04/15/2022 04/15/2012 Colonoscopy 10/17/2023 10/17/2013 (Declined), 02/20/1998 Tdap Vaccine Completed 04/15/2012 Results from Last 3 Months Not on file
--- OUTSIDE RECORDS SUMMARY | 2016-12-30 16:34 | XMS REPORT | Summary of Care ---
:1960 Author Organization [facility] Address [address] [place] [address] Care Team Providers Name Role Phone Gabrielle Smallwood Primary Care Physician Encounter Date(s): 03/10/16 - 03/10/[address] [facility], [address] [place], [place] [address] Discharge Diagnosis: Tobacco use Discharge Diagnosis: Fatigue Discharge Diagnosis: Dyspnea Discharge Disposition: 01 Discharged to Home or Self Care Attending Physician: NATALEE Stoddard Referring Physician: DELVIS Romero Vital Signs Most recent to oldest [Reference Range]: 1 Temperature Tympanic [36.6-38.1 DegC] 36.5 DegC *LOW* (03/10/16 1:28 PM) Temperature C to F 97.7 (03/10/16 1:28 PM) Peripheral Pulse Rate [60-100 bpm] 96 bpm (03/10/16 1:28 PM) SpO2 98 % (03/10/16 1:28 PM) Blood Pressure [90-130/60-90 mmHg] 137/90mmHg *HI* (03/10/16 1:28 PM) Mean Arterial Pressure, Cuff 106 mmHg (03/10/16 1:28 PM) Most recent to oldest [Reference Range]: 1 Height/Length Measured 159 cm (03/10/16 1:28 PM) Weight Dosing 138.10 kg1 (03/10/16 1:30 PM) Weight Measured 138.1 kg (03/10/16 1:28 PM) BSA Measured 2.3 m2 (03/10/16 1:28 PM) Body Mass Index Measured 54.63 kg/m2 (03/10/16 1:28 PM) 1Result Comment: This result was because the dosing weight was either not entered or it is>30 days old. This result is based off: Weight Measured March 10, 2016 13:28:00 CDT by Maria Luisa Barfield Problem List Condition Effective Dates Status Health Status Informant Depression(Confirmed) Active Fibromyalgia(Confirmed) Active patient Migraine(Confirmed) Active patient Wheezing(Confirmed) Active Allergies, Adverse Reactions, Alerts Substance Reaction Severity Status codeine Active gabapentin Severe Active Toradol Severe Active Medications albuterol 2.5 mg/3 mL (0.083%) inhalation solution 3 mL, Inhale, q6hr, # 25 EA, 0 Refill(s), Start Date: 12/16/15 20:03:00 SAT ACT INSTRUCTOR Start Date: 12/16/15 Stop Date: 01/15/16 Status: Orderedalbuterol HFA puff(s), Inhale, QID, 0 Refill(s), Start Date: 09/25/15 13:27:00 SAT ACT INSTRUCTOR Start Date: 09/25/15 Stop Date: 03/10/16 Status: Completedamitriptyline 10 mg oral tablet 1 tab(s), Oral, HS, 0 Refill(s), Start Date: 07/26/14 8:18:00 CDT Start Date: 07/26/14 Status: OrderedbusPIRone 10 mg oral tablet 1 tab(s), Oral, TID, # 90 tab(s), 0 Refill(s), Start Date: 03/10/16 13:27:00 CDT Start Date: 03/10/16 Status: Orderedclindamycin 300 mg oral capsule 1 cap(s), Oral, q6hr, # 28 cap(s), 0 Refill(s), Start Date: 12/17/14 14:47:00 SAT ACT INSTRUCTOR Start Date: 12/17/14 Stop Date: 02/25/15 Status: Completedcyclobenzaprine 10 mg, Oral, BID, 0 Refill(s) Start Date: 06/01/14 Status: Ordereddiclofenac 1% topical gel 1 maxwell, Topical, QID, # 100 gm, 0 Refill(s), Start Date: 06/27/15 10:56:00 CDT, Pharmacy: [facility] Start Date: 06/27/15 Stop Date: 03/10/16 Status: CompletedDME - Nebulizer 1 EA, NEB, 12/16/15, Criteria in Order Comments Met?, # 1 EA, 0 Refill(s), 20:03:00 SAT ACT INSTRUCTOR, Supply Start Date: 12/16/15 Status: OrderedHYDROcodone-acetaminophen 5 mg-325 mg oral tablet 1 tab(s), Oral, q6hr, X 3 days, # 12 tab(s), 0 Refill(s), Start Date: 02/25/15 13:13:00 CDT Start Date: 02/25/15 Stop Date: 02/28/15 Status: CompletedHYDROcodone-acetaminophen 5 mg-325 mg oral tablet 2 tab(s), Oral, q6hr, X 3 days, # 15 tab(s), 0 Refill(s), Start Date: 11/26/14 14:42:00 SAT ACT INSTRUCTOR Start Date: 11/26/14 Stop Date: 11/29/14 Status: [...] Start Date: 01/22/15 Stop Date: 01/24/15 Status: Completedibuprofen 800 mg oral tablet 1 tab(s), Oral, TID, PRN for pain, # 30 tab(s), 0 Refill(s), Start Date: 19:39:00 CDT Start Date: 03/13/14 Stop Date: 09/10/14 Status: Completedibuprofen 800 mg oral tablet 1 tab(s), Oral, TID, # 30 tab(s), 0 Refill(s), Start Date: 09/25/15 13:32:00 SAT ACT INSTRUCTOR , Pharmacy: [facility] Start Date: 09/25/15 Stop Date: 03/10/16 Status: Completedibuprofen 800 mg oral tablet 1 tab(s), Oral, q6hr interval, PRN for pain, # 60 tab(s), 0 Refill(s), Start Date: 09/10/14 14:35:47 SAT ACT INSTRUCTOR, 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) Start Date: 09/10/14 Stop Date: 10/08/14 Status: Completedibuprofen 800 mg oral tablet 1 tab(s), Oral, q6hr interval, PRN for pain, # 30 tab(s), 0 Refill(s), Start Date: 10/08/14 11:29:36 SAT ACT INSTRUCTOR, Pharmacy: [facility] [id number] Start Date: 10/08/14 Stop Date: 10/29/14 Status: Completedibuprofen 800 mg oral tablet 1 tab(s), Oral, TID, PRN for pain, # 30 tab(s), 0 Refill(s), Start Date: 10:05:00 SAT ACT INSTRUCTOR, Pharmacy: [facility] Start Date: 12/05/14 Stop Date: 03/10/16 Status: Completedmeloxicam 15 mg, Oral, Daily, 0 Refill(s) Start Date: 06/01/14 Status: OrderedNorco 5 mg-325 mg oral tablet See Instructions, 1-2tab(s) Oral q4-6hr prn pain, # 60 tab(s), 0 Refill(s), Start Date: 05/03/15 9:04:44 CDT Special Instructions: 1-2tab(s) Oral q4-6hr prn pain Start Date: 05/03/15 Stop Date: 05/13/15 Status: CompletedNorco 5 mg-325 mg oral tablet 2 tab(s), Oral, q6hr, PRN for pain, # 30 tab(s), 0 Refill(s), Start Date: 10:14:00 SAT ACT INSTRUCTOR, Pharmacy: [facility] [id number] Start Date: 10/01/14 Stop Date: 10/08/14 Status: CompletedNorco 5 mg-325 mg oral tablet 1 tab(s), Oral, q4hr, PRN for pain, # 10 tab(s), 0 Refill(s), Start Date: 22:44:00 SAT ACT INSTRUCTOR Start Date: 08/20/15 Stop Date: 08/24/15 Status: CompletedNorco 5 mg-325 mg oral tablet 1 tab(s), Oral, q4hr, # 30 tab(s), 0 Refill(s), Start Date: 06/05/15 11:12:00 CDT, Pharmacy: [facility] Start Date: 06/05/15 Stop Date: 06/26/15 [...] tab(s), 0 Refill(s), Start Date: 08/27/14 10:45:01 SAT ACT INSTRUCTOR, other reason (Rx) Special Instructions: 1-2 tab(s) Oral q6hr PRN pain Start Date: 08/27/14 Stop Date: 09/03/14 Status: CompletedNorco 5 mg-325 mg oral tablet 1 tab(s), Oral, q4hr, # 30 tab(s), 0 Refill(s), Start Date: 07/17/15 10:26:00 CDT, Pharmacy: [facility] Start Date: 07/17/15 Stop Date: 09/25/15 Status: CompletedNorco 5 mg-325 mg oral tablet 1 tab(s), Oral, q6hr, PRN for pain, # 30 tab(s), 0 Refill(s), Start Date: 11:02:00 SAT ACT INSTRUCTOR, Pharmacy: [facility] Start Date: 10/29/14 Stop Date: 12/05/14 Status: CompletedNorco 5 mg-325 mg oral tablet See Instructions, 1-2tab(s) Oral q4-6hr prn pain, # 50 tab(s), 0 Refill(s), Start Date: 05/13/15 9:54:50 CDT, Pharmacy: [facility] Special Instructions: 1-2tab(s) Oral q4-6hr prn pain Start Date: 05/13/15 Stop Date: 05/20/15 Status: CompletedNorco 5 mg-325 mg oral tablet 2 tab(s), Oral, q6hr, PRN for pain, # 45 tab(s), 0 Refill(s), Start Date: 11:52:05 SAT ACT INSTRUCTOR, other reason (Rx) Start Date: 10/15/14 Stop Date: 10/29/14 Status: CompletedNorco 5 mg-325 mg oral tablet 1 tab(s), Oral, q6hr interval, PRN for pain, # 30 tab(s), 0 Refill(s), Start Date: 06/17/15 10:34:42 CDT, Pharmacy: [facility] Start Date: 06/17/15 Stop Date: 06/26/15 Status: DiscontinuedNorco 5 mg-325 mg oral tablet 1 tab(s), Oral, q6hr, PRN for pain, # 30 tab(s), 0 Refill(s), Start Date: 11:00:00 SAT ACT INSTRUCTOR, Pharmacy: [facility] [id number] Start Date: 10/29/14 Stop Date: 10/29/14 Status: DiscontinuedNorco 5 mg-325 mg oral tablet 2 tab(s), Oral, q6hr, PRN for pain, # 30 tab(s), 0 Refill(s), Start Date: 11:30:02 SAT ACT INSTRUCTOR, other reason (Rx) Start Date: 10/08/14 Stop Date: 10/15/14 Status: CompletedNorco 5 mg-325 mg oral tablet See Instructions, 1-2 tab(s) Oral q6hr PRN pain, # 40 tab(s), 0 Refill(s), Start Date: 09/03/14 15:24:06 SAT ACT INSTRUCTOR, other reason (Rx) Special Instructions: 1-2 tab(s) Oral q6hr PRN pain Start Date: 09/03/14 Stop Date: 10/29/14 Status: CompletedNorco 5 mg-325 mg oral tablet See Instructions, 1-2 tab(s) Oral q4-6hr PRN pain, # 30 tab(s), 0 Refill(s), Start Date: 08/20/14 15:25:27 SAT ACT INSTRUCTOR, other reason (Rx) Special Instructions: 1-2 tab(s) [...] Start Date: 11:30:00 CDT, Pharmacy: [facility] Start Date: 06/10/15 Stop Date: 06/17/15 Status: Completedomeprazole 40 mg oral delayed release capsule 1 cap(s), Oral, Daily, # 30 cap(s), 4 Refill(s), Start Date: 03/10/16 14:24:00 CDT, Pharmacy: [facility] Start Date: 03/10/16 Status: Orderedorphenadrine 100 mg oral tablet, extended release 1 tab(s), Oral, BID, # 10 tab(s), 0 Refill(s), Start Date: 07/10/15 19:44:00 CDT Start Date: 07/10/15 Stop Date: 03/10/16 Status: Completedpenicillin V potassium 500 mg oral tablet 1 tab(s), Oral, TID, X 7 days, # 21 tab(s), 0 Refill(s), Start Date: 11/26/14 14 :42:00 SAT ACT INSTRUCTOR Start Date: 11/26/14 Stop Date: 12/03/14 Status: Completedpenicillin V potassium 500 mg oral tablet 1 tab(s), Oral, TID, # 30 tab(s), 0 Refill(s), Start Date: 01/13/16 19:53:00 CDT Start Date: 01/13/16 Stop Date: 03/10/16 Status: CompletedPercocet 5/325 oral tablet 1 tab(s), Oral, q4hr, PRN for pain, Do not work or drive with this medication, # 6 tab(s), 0 Refill(s), Start Date: 12/17/14 14:47:00 SAT ACT INSTRUCTOR Special Instructions: Do not work or drive with this medication Start Date: 12/17/14 Stop Date: 12/19/14 Status: CompletedPercocet 5/325 oral tablet 2 tab(s), Oral, q4hr, # 60 tab(s), 0 Refill(s), Start Date: 05/20/15 8:25:00 CDT , Pharmacy: [facility] Start Date: 05/20/15 Stop Date: 05/29/15 Status: CompletedPercocet 5/325 oral tablet 2 tab(s), Oral, q4hr, # 40 tab(s), 0 Refill(s), Start Date: 05/29/15 14:40:46 CDT, Pharmacy: [facility] Start Date: 05/29/15 Stop Date: 06/05/15 Status: DiscontinuedPercocet 5/325 oral tablet 1 tab(s), Oral, q6hr interval, X 3 days, # 12 tab(s), 0 Refill(s), Start Date: 05/17/15 14:18:00 CDT Start Date: 05/17/15 Stop Date: 05/20/15 Status: CompletedSymbicort 160 mcg-4.5 mcg/inh inhalation aerosol 2 puff(s), Inhale, BID, # 1 EA, 3 Refill(s), Start Date: 03/27/16 13:01:00 CDT, Pharmacy: [facility] Start Date: 03/27/16 Stop Date: 07/25/16 Status: OrderedtraMADol 50 mg oral tablet 1 tab(s), Oral, q4hr, PRN for pain, # 24 tab(s), 0 Refill(s), Start Date: 16:24:00 CDT Start Date: 06/01/14 Stop Date: 09/10/14 Status: CompletedtraMADol 50 mg oral tablet See Instructions, PRN for pain, 1-2 tab(s) Oral q4-6hr interval, # 45 tab(s), 1 Refill(s), Start Date: 11/06/14 10:10:50 SAT ACT INSTRUCTOR, 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) Special Instructions: 1-2 tab(s) Oral q4-6hr interval Start Date: 11/06/14 Stop Date: 11/12/14 Status: CompletedtraMADol 50 mg oral tablet 1 tab(s), Oral, q12hr, PRN pain severe 8-10, # 30 tab(s), 0 Refill(s), Start Date: 06/26/15 13:56:00 CDT, Pharmacy: [facility] Start Date: 06/26/15 Stop Date: 07/17/15 Status: CompletedtraMADol 50 mg oral tablet 1 tab(s), Oral, q6hr interval, PRN for pain, # 60 tab(s), 0 Refill(s), Start Date: 09/10/14 14:35:17 SAT ACT INSTRUCTOR, 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) Start Date: 09/10/14 Stop Date: 10/23/14 Status: CompletedtraMADol 50 mg oral tablet 1 tab(s), Oral, q4hr, PRN for pain, # 40 tab(s), 0 Refill(s), Start Date: 13:05:00 SAT ACT INSTRUCTOR, Pharmacy: [facility] Start Date: 08/26/15 Stop Date: 09/25/15 Status: CompletedtraMADol 50 mg oral tablet See Instructions, PRN for pain, 1-2 tab(s) Oral q4-6hr interval, # 45 tab(s), 1 Refill(s), Start Date: 10/23/14 10:48:21 SAT ACT INSTRUCTOR, 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) Special Instructions: 1-2 tab(s) Oral q4-6hr interval Start Date: 10/23/14 Stop Date: 11/06/14 Status: CompletedtraMADol 50 mg oral tablet 1 tab(s), Oral, q12hr, PRN for pain, # 30 tab(s), 0 Refill(s), Start Date: 12/05 10:05:00 SAT ACT INSTRUCTOR, Pharmacy: [facility] Start Date: 12/05/14 Stop Date: 12/13/14 [...] tab(s), 0 Refill(s), Start Date: 11/12/14 14:53:03 SAT ACT INSTRUCTOR, 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) Special Instructions: 1-2 tab(s) Oral q4-6hr interval Start Date: 11/12/14 Stop Date: 05/20/15 Status: CompletedtraMADol 50 mg oral tablet 1 tab(s), Oral, q12hr, PRN for pain, # 30 tab(s), 0 Refill(s), Start Date: 12/13 14:43:11 SAT ACT INSTRUCTOR, Pharmacy: [facility] Start Date: 12/13/14 Stop Date: 05/20/15 Status: CompletedTylenol with Codeine #3 oral tablet 2 tab(s), Oral, q6hr, # 16 tab(s), 0 Refill(s) Start Date: 03/13/14 Stop Date: 03/15/14 Status: Completedvenlafaxine 25 mg, Oral, BID, 0 Refill(s) Start Date: 06/01/14 Status: OrderedVentolin HFA 90 mcg/inh inhalation aerosol 2 puff(s), Inhale, q4hr, PRN for wheezing, # 8 gm, 0 Refill(s), Start Date: 13:26:00 CDT Start Date: 03/10/16 Status: OrderedVicodin 5 mg-325 mg oral tablet 1-2, Oral, [...] Date: 05/20/15 8:25:00 CDT, Pharmacy: [facility] Start Date: 05/20/15 Stop Date: 07/17/15 Status: CompletedZofran 4 mg oral tablet 1 tab(s), Oral, TID, PRN nausea/vomiting, # 10 tab(s), 0 Refill(s) Start Date: 06/01/14 Stop Date: 07/17/15 Status: Completed Results No data available for this section Immunizations No data available for this section Procedures Procedure Date Related Diagnosis Body Site Procedure on bone of ankle Procedure on knee - left - tendon repair Tubal ligation Social History No data available for this section Assessment and Plan No data available for this section
--- OUTSIDE RECORDS SUMMARY | 2016-12-30 16:35 | XMS REPORT | Summary of Care ---
:1960 Author Organization [facility] Address [address] [place] [id number] Care Team Providers Name Role Phone Gabrielle Smallwood Primary Care Physician Encounter Date(s): 12/04/16 - 12/04/[address] [id number]- [facility] Discharge Diagnosis: Ankle pain, right Discharge Disposition: Discharged to Home or Self Care Attending Physician: Baltazar Epps DO Admitting Physician: Baltazar Epps DO Vital Signs Most recent to oldest [Reference Range]: 1 2 Temperature Temporal Artery [36.0-38.0 DegC] 36.6 DegC 36.1 DegC (12/04/16 4:54 PM) (12/04/16 3:40 PM) Heart Rate Monitored [60-100 bpm] 81 bpm 84 bpm (12/04/16 4:54 PM) (12/04/16 3:40 PM) Respiratory Rate [12-20 br/min] 18 br/min 18 br/min (12/04/16 4:54 PM) (12/04/16 3:40 PM) SpO2 [90-100 %] 97 % 97 % (12/04/16 4:54 PM) (12/04/16 3:40 PM) Blood Pressure [90-130/60-90 mmHg] 119/71mmHg 115/73mmHg (12/04/16 4:54 PM) (12/04/16 3:40 PM) Most recent to oldest [Reference Range]: 1 2 Weight Estimated 140 kg (12/04/16 3:40 PM) Weight Dosing 140.00 kg1 (12/04/16 3:43 PM) 1Result Comment: This result was because the dosing weight was either not entered or it is>30 days old. This result is based off: Weight Estimated December 04, 2016 15:40:00 [employer] by Harini Dobbins RN Problem List Condition Effective Dates Status Health [...] mL, 2 Refill(s), Start Date: 10/06/16 14:00:04 [employer], Pharmacy: [facility] Start Date: 10/06/16 Stop Date: 01/04/17 Status: Orderedalbuterol 2.5 mg/3 mL (0.083%) inhalation solution 3 mL, Inhale, q6hr, X 30 days, # 25 EA, 0 Refill(s), Start Date: 06/09/16 16:07: 01 CDT, Pharmacy: [facility] Start Date: 06/09/16 Stop Date: 10/06/16 Status: Completedalbuterol 2.5 mg/3 mL (0.083%) inhalation solution 3 mL, Inhale, q6hr, # 25 EA, 0 Refill(s), Start Date: 12/16/15 20:03:00 [employer] Start Date: 12/16/15 Stop Date: 06/09/16 Status: Discontinuedalbuterol HFA puff(s), Inhale, QID, 0 Refill(s), Start Date: 09/25/15 13:27:00 [employer] Start Date: 09/25/15 Stop Date: 03/10/16 Status: Completedamitriptyline 10 mg oral tablet 1 tab(s), Oral, HS, 0 Refill(s), Start Date: 07/26/14 8:18:00 CDT Start Date: 07/26/14 Stop Date: 09/21/16 Status: CompletedAugmentin 875 mg-125 mg oral tablet 875 mg, Oral, q12hr interval, # 20 tab(s), 0 Refill(s), Start Date: 07/20/16 17: 32:00 CDT, Pharmacy: [facility] Start Date: 07/20/16 Stop Date: 07/30/16 Status: DiscontinuedAzithromycin 5 Day Dose Pack 250 mg oral tablet 1 packet(s), Oral, Per Package Label, as directed on package labeling, X 5 days , # 6 tab(s), 0 Refill(s), Start Date: 12/01/16 15:05:00 [employer] Special Instructions: as directed on package labeling Start Date: 12/01/16 Stop Date: 12/06/16 Status: OrderedbusPIRone 10 mg oral tablet 1 tab(s), Oral, TID, # 90 tab(s), 0 Refill(s), Start Date: 03/10/16 13:27:00 CDT Start Date: 03/10/16 Status: Orderedcephalexin 500 mg oral capsule 1 cap(s), Oral, QID, # 40 cap(s), 0 Refill(s), Start Date: 09/21/16 15:32:00 [employer] , Pharmacy: [facility] Start Date: 09/21/16 Stop Date: 10/13/16 Status: Completedclindamycin 300 mg oral capsule 1 cap(s), Oral, q6hr, # 28 cap(s), 0 Refill(s), Start Date: 12/17/14 14:47:00 [employer] Start Date: 12/17/14 Stop Date: 02/25/15 Status: [...] Refill(s), Start Date: 04/28/16 16:03:00 CDT, Pharmacy: [facility] Start Date: 04/28/16 Stop Date: 06/09/16 Status: Completeddiclofenac 1% topical gel 1 maxwell, Topical, QID, # 100 gm, 0 Refill(s), Start Date: 06/27/15 10:56:00 CDT, Pharmacy: [facility] Start Date: 06/27/15 Stop Date: 03/10/16 Status: CompletedDilaudid 2 mg oral tablet 1 tab(s), Oral, q8hr interval, PRN for pain, # 12 tab(s), 0 Refill(s), Start Date: 10/22/16 19:09:00 [employer] Start Date: 10/22/16 Stop Date: 10/31/16 Status: CompletedDilaudid 2 mg oral tablet 1 tab(s), Oral, q4hr, PRN for pain, # 12 tab(s), 0 Refill(s), Start Date: 16:54:00 [employer] Start Date: 10/31/16 Stop Date: 12/01/16 Status: CompletedDME - Nebulizer 1 EA, NEB, 12/16/15, Criteria in Order Comments Met?, # 1 EA, 0 Refill(s), 20:03:00 [employer], Supply Start Date: 12/16/15 Status: OrderedFlexeril 10 [...] tab(s), 0 Refill(s), Start Date: 11/26/14 14:42:00 [employer] Start Date: 11/26/14 Stop Date: 11/29/14 Status: [...] 0 Refill(s) , Start Date: 10/22/16 20:47:00 [employer] Start Date: 10/22/16 Stop Date: 10/27/16 Status: Completedhydrocodone-acetaminophen 5mg-325mg oral tablet 2 tab(s), Oral, q4hr, PRN for pain, # 20 tab(s), 0 Refill(s), Start Date: 17:11:00 [employer] Start Date: 10/31/16 Stop Date: 11/03/16 Status: Discontinuedibuprofen 800 mg oral tablet 1 tab(s), Oral, TID, PRN for pain, # 30 tab(s), 0 Refill(s), Start Date: 19:39:00 CDT Start Date: 03/13/14 Stop Date: 09/10/14 Status: Completedibuprofen 800 mg oral tablet 1 tab(s), Oral, TID, # 30 tab(s), 0 Refill(s), Start Date: 09/25/15 13:32:00 [employer] , Pharmacy: [facility] Start Date: 09/25/15 Stop Date: 03/10/16 Status: Completedibuprofen 800 mg oral tablet 1 tab(s), Oral, q6hr interval, PRN for pain, # 60 tab(s), 0 Refill(s), Start Date: 09/10/14 14:35:47 [employer], 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) Start Date: 09/10/14 Stop Date: 10/08/14 Status: Completedibuprofen 800 mg oral tablet 1 tab(s), Oral, q6hr interval, PRN for pain, # 30 tab(s), 0 Refill(s), Start Date: 10/08/14 11:29:36 [employer], Pharmacy: [facility] [id number] Start Date: 10/08/14 Stop Date: 10/29/14 Status: Completedibuprofen 800 mg oral tablet 1 tab(s), Oral, TID, PRN for pain, # 30 tab(s), 0 Refill(s), Start Date: 10:05:00 [employer], Pharmacy: [facility] Start Date: 12/05/14 Stop Date: 03/10/16 Status: Completedibuprofen 800 mg oral tablet 1 tab(s), Oral, TID, # 30 tab(s), 0 Refill(s), Start Date: 08/26/16 8:54:00 [employer] , Pharmacy: [facility] Start Date: 08/26/16 Stop Date: 12/01/16 Status: Completedindomethacin 50 mg oral capsule 1 cap(s), Oral, TID, PRN for pain, X 10 days, # 30 cap(s), 0 Refill(s), Start Date: 10/13/16 17:12:00 [employer] Start Date: 10/13/16 Stop Date: 10/23/16 Status: CompletedLevaquin 750 mg oral tablet 1 tab(s), Oral, q24hr interval, # 7 tab(s), 0 Refill(s), Start Date: 04/28/16 15 :56:00 CDT, Pharmacy: [facility] Start Date: 04/28/16 Stop Date: 06/09/16 Status: Completedlisinopril 10 mg oral tablet 1 tab(s), Oral, Daily, # 30 tab(s), 5 Refill(s), Start Date: 10/22/16 16:07:58 [employer], Pharmacy: [facility] Start Date: 10/22/16 Status: Orderedlisinopril 10 mg oral tablet 1 tab(s), Oral, Daily, # 30 tab(s), 5 Refill(s), Start Date: 04/28/16 15:59:00 CDT, Pharmacy: [facility] Start Date: 04/28/16 Stop Date: 10/22/16 Status: CompletedMedrol Dosepak 4 mg oral tablet 1 packet(s), Oral, Per Package Label, as directed on package labeling, X 6 days , # 21 tab(s), 0 Refill(s), Start Date: 10/13/16 17:12:00 [employer] Special Instructions: as directed on package labeling [...] tab(s), 0 Refill(s), Start Date: 09/16/16 12:26:21 [employer], Pharmacy: [facility] Special Instructions: 1-2 po Q 4-6 hrs prn pain Start Date: 09/16/16 Stop Date: 09/23/16 Status: CompletedNorco 5 mg-325 mg oral tablet 2 tab(s), Oral, q6hr, PRN for pain, # 30 tab(s), 0 Refill(s), Start Date: 10:14:00 [employer], Pharmacy: [facility] [id number] Start Date: 10/01/14 Stop Date: 10/08/14 Status: CompletedNorco 5 mg-325 mg oral tablet 1 tab(s), Oral, q4hr, PRN for pain, # 10 tab(s), 0 Refill(s), Start Date: 22:44:00 [employer] Start Date: 08/20/15 Stop Date: 08/24/15 Status: CompletedNorco 5 mg-325 mg oral tablet See Instructions, 1 po Q 4-6 hrs prn pain, # 30 tab(s), 0 Refill(s), Start Date : 09/08/16 10:59:35 [employer], Pharmacy: [facility] Special Instructions: 1 po Q 4-6 hrs prn pain Start Date: 09/08/16 Stop Date: 09/14/16 Status: CompletedNorco 5 mg-325 mg oral tablet 1 tab(s), Oral, q4hr, # 30 tab(s), 0 Refill(s), Start Date: 06/05/15 11:12:00 CDT, Pharmacy: [facility] Start Date: 06/05/15 Stop Date: 06/26/15 Status: DiscontinuedNorco 5 mg-325 mg oral tablet 1 tab(s), Oral, q6hr, # 40 tab(s), 0 Refill(s), Start Date: 08/17/16 12:42:00 CDT, Pharmacy: [facility] Start Date: 08/17/16 Stop Date: 08/26/16 [...] , 0 Refill(s), Start Date: 09/23/16 14:55:00 [employer], Pharmacy: [facility] Special Instructions: Use sparingly Start Date: 09/23/16 Stop Date: 10/01/16 Status: DiscontinuedNorco 5 mg-325 mg oral tablet See Instructions, 1-2 tab(s) Oral q6hr PRN pain, # 30 tab(s), 0 Refill(s), Start Date: 08/27/14 10:45:01 [employer], other reason (Rx) Special Instructions: 1-2 tab(s) Oral q6hr PRN pain Start Date: 08/27/14 Stop Date: 09/03/14 Status: CompletedNorco 5 mg-325 mg oral tablet 1 tab(s), Oral, q4hr, PRN for pain, X 3 days, # 15 tab(s), 0 Refill(s), Start Date: 09/04/16 17:08:00 [employer] Start Date: 09/04/16 Stop Date: 09/07/16 Status: CompletedNorco 5 mg-325 mg oral tablet See Instructions, 1 po Q 4-6 hrs prn pain, # 12 tab(s), 0 Refill(s), Start Date : 09/14/16 11:50:00 [employer], Pharmacy: [facility] Special Instructions: 1 po Q 4-6 hrs prn pain Start Date: 09/14/16 Stop Date: 09/16/16 Status: CompletedNorco 5 mg-325 mg oral tablet 1 tab(s), Oral, q6hr, # 40 tab(s), 0 Refill(s), Start Date: 08/07/16 11:55:00 CDT, [facility] Start Date: 08/07/16 Stop Date: 08/17/16 Status: CompletedNorco 5 mg-325 mg oral tablet 1 tab(s), Oral, q4hr, # 30 tab(s), 0 Refill(s), Start Date: 07/17/15 10:26:00 CDT, Pharmacy: [facility] Start Date: 07/17/15 Stop Date: 09/25/15 Status: CompletedNorco 5 mg-325 mg oral tablet 1 tab(s), Oral, q6hr, PRN for pain, # 30 tab(s), 0 Refill(s), Start Date: 11:02:00 [employer], Pharmacy: [facility] Start Date: 10/29/14 Stop Date: 12/05/14 Status: CompletedNorco 5 mg-325 mg oral tablet See Instructions, 1-2tab(s) Oral q4-6hr prn pain, # 50 tab(s), 0 Refill(s), Start Date: 05/13/15 9:54:50 CDT, Pharmacy: [facility] Special Instructions: 1-2tab(s) Oral q4-6hr prn pain Start Date: 05/13/15 Stop Date: 05/20/15 Status: CompletedNorco 5 mg-325 mg oral tablet 1 tab(s), Oral, q6hr interval, not to exceed 8 tablets/day, # 40 tab(s), 0 Refill(s), Start Date: 10/01/16 11:17:00 [employer], Pharmacy: [facility] Special Instructions: not to exceed 8 tablets/day Start Date: 10/01/16 Stop Date: 10/13/16 Status: CompletedNorco 5 mg-325 mg oral tablet 2 tab(s), Oral, q6hr, PRN for pain, # 45 tab(s), 0 Refill(s), Start Date: 11:52:05 [employer], other reason (Rx) Start Date: 10/15/14 Stop Date: 10/29/14 Status: CompletedNorco 5 mg-325 mg oral tablet 1 tab(s), Oral, q6hr interval, PRN for pain, # 30 tab(s), 0 Refill(s), Start Date: 06/17/15 10:34:42 CDT, Pharmacy: [facility] Start Date: 06/17/15 Stop Date: 06/26/15 Status: DiscontinuedNorco 5 mg-325 mg oral tablet 1 tab(s), Oral, q6hr interval, # 30 tab(s), 0 Refill(s), Start Date: 10/15/16 16 :23:00 [employer], Pharmacy: [facility] Start Date: 10/15/16 Stop Date: 10/31/16 Status: CompletedNorco 5 mg-325 mg oral tablet 1 tab(s), Oral, q6hr, # 40 tab(s), 0 Refill(s), Start Date: 07/30/16 10:06:00 CDT, Pharmacy: [facility] Start Date: 07/30/16 Stop Date: 08/07/16 Status: CompletedNorco 5 mg-325 mg oral tablet 1 tab(s), Oral, q6hr, PRN for pain, # 30 tab(s), 0 Refill(s), Start Date: 11:00:00 [employer], Pharmacy: [facility] [id number] Start Date: 10/29/14 Stop Date: 10/29/14 Status: DiscontinuedNorco 5 mg-325 mg oral tablet 2 tab(s), Oral, q6hr, PRN for pain, # 30 tab(s), 0 Refill(s), Start Date: 11:30:02 [employer], other reason (Rx) Start Date: 10/08/14 Stop Date: 10/15/14 Status: CompletedNorco 5 mg-325 mg oral tablet See Instructions, 1-2 tab(s) Oral q6hr PRN pain, # 40 tab(s), 0 Refill(s), Start Date: 09/03/14 15:24:06 [employer], other reason (Rx) Special Instructions: 1-2 tab(s) Oral q6hr PRN pain Start Date: 09/03/14 Stop Date: 10/29/14 Status: CompletedNorco 5 mg-325 mg oral tablet See Instructions, 1-2 tab(s) Oral q4-6hr PRN pain, # 30 tab(s), 0 Refill(s), Start Date: 08/20/14 15:25:27 [employer], other reason (Rx) Special Instructions: 1-2 tab(s) Oral q4-6hr PRN pain Start Date: 08/20/14 Stop Date: 08/27/14 Status: CompletedNorco 5 mg-325 mg oral tablet 1 tab(s), Oral, q6hr, # 30 tab(s), 0 Refill(s), Start Date: 08/26/16 8:54:54 [employer] , Pharmacy: [facility] Start Date: 08/26/16 Stop Date: 09/08/16 [...] 0 Refill(s), Start Date: 11:30:00 CDT, Pharmacy: [facility] Start Date: 06/10/15 Stop Date: 06/17/15 Status: Completedomeprazole 40 mg oral delayed release capsule 1 cap(s), Oral, Daily, 0 Refill(s), Start Date: 06/09/16 15:12:00 CDT Start Date: 06/09/16 Stop Date: 08/17/16 Status: Discontinuedomeprazole 40 mg oral delayed release capsule 1 cap(s), Oral, Daily, # 30 cap(s), 3 Refill(s), Start Date: 12/04/16 10:57:32 [employer], Pharmacy: [facility] Start Date: 12/04/16 Stop Date: 04/03/17 Status: Orderedomeprazole 40 mg oral delayed release capsule 1 cap(s), Oral, Daily, # 30 cap(s), 4 Refill(s), Start Date: 03/10/16 14:24:00 CDT, Pharmacy: [facility] Start Date: 03/10/16 Stop Date: 04/28/16 Status: Discontinuedomeprazole 40 mg oral delayed release capsule 1 cap(s), Oral, Daily, X 30 days, # 30 cap(s), 3 Refill(s), Start Date: 13:57:00 CDT, Pharmacy: [facility] Start Date: 08/17/16 Stop Date: 12/04/16 Status: Completedorphenadrine 100 mg oral tablet, extended release 1 tab(s), Oral, BID, # 10 tab(s), 0 Refill(s), Start Date: 07/10/15 19:44:00 CDT Start Date: 07/10/15 Stop Date: 03/10/16 Status: Completedorphenadrine 100 mg oral tablet, extended release 1 tab(s), Oral, BID, # 10 tab(s), 0 Refill(s), Start Date: 12/04/16 16:16:00 [employer] Start Date: 12/04/16 Stop Date: 12/09/16 Status: Orderedpenicillin V potassium 500 mg oral tablet 1 tab(s), Oral, TID, X 7 days, # 21 tab(s), 0 Refill(s), Start Date: 11/26/14 14 :42:00 [employer] Start Date: 11/26/14 Stop Date: 12/03/14 Status: Completedpenicillin V potassium 500 mg oral tablet 1 tab(s), Oral, TID, # 30 tab(s), 0 Refill(s), Start Date: 01/13/16 19:53:00 CDT Start Date: 01/13/16 Stop Date: 03/10/16 Status: CompletedPercocet 5/325 oral tablet 1 tab(s), Oral, q4hr, PRN for pain, Do not work or drive with this medication, # 6 tab(s), 0 Refill(s), Start Date: 12/17/14 14:47:00 [employer] Special Instructions: Do not work or drive [...] Start Date: 05/20/15 8:25:00 CDT , Pharmacy: [facility] Start Date: 05/20/15 Stop Date: 05/29/15 Status: CompletedPercocet 5/325 oral tablet 2 tab(s), Oral, q4hr, # 40 tab(s), 0 Refill(s), Start Date: 05/29/15 14:40:46 CDT, Pharmacy: [facility] Start Date: 05/29/15 Stop Date: [...] ), Start Date: 07/17/16 14:03:00 CDT, Pharmacy: [facility] Special Instructions: may increase in 1 week to two tabs. Start Date: 07/17/16 Stop Date: 09/04/16 Status: CompletedpredniSONE 10 mg oral tablet See Instructions, 40mg daily x 3d, 30mg daily x 3d, 20mg daily x 3d, 10mg daily x 3d, # 30 tab(s), 0 Refill(s), Start Date: 07/20/16 17:33:00 CDT, Pharmacy: [facility] Special Instructions: 40mg daily x 3d, [...] Refill(s), Start Date: 04/28/16 15:56:00 CDT, Pharmacy: [facility] Special Instructions: 40 mg qd x 3d, 30 mg qd x 3d, 20 mg qd x 3d, 10 mg qd x 3d. with food Start Date: 04/28/16 Stop Date: 06/09/16 Status: CompletedpredniSONE 20 mg oral tablet 2 tab(s), Oral, Daily, X 5 days, # 10 tab(s), 0 Refill(s), Start Date: 12/01/16 15:05:00 [employer] Start Date: 12/01/16 Stop Date: 12/06/16 Status: [...] Refill(s), Start Date: 06/29/16 10:57:00 CDT, [facility] Special Instructions: Oral ONETIME Start Date: 06/29/16 Stop Date: 07/27/16 Status: CompletedRequip 0.25 mg oral tablet 1 tab(s), Oral, Daily, take one at hs about 30 minutes prior to hs, may increase to 2 po at night after 3-5 days. with food, # 45 tab(s), 3 Refill(s) , Start Date: 06/09/16 16:13:00 CDT, [facility] Special Instructions: take one at hs about 30 minutes prior to hs, may increase to 2 po at night after 3-5 days. with food Start Date: 06/09/16 Stop Date: 09/04/16 Status: CompletedSingulair 10 mg oral tablet 1 tab(s), Oral, Daily, # 30 tab(s), 5 Refill(s), Start Date: 12/04/16 10:57:55 [employer], Pharmacy: [facility] Start Date: 12/04/16 Status: OrderedSingulair 10 mg oral tablet 1 tab(s), Oral, Daily, # 30 tab(s), 5 Refill(s), Start Date: 06/09/16 16:23:00 CDT, Pharmacy: [facility] Start Date: 06/09/16 Stop Date: 12/04/16 Status: CompletedSpiriva 18 mcg inhalation capsule 1 cap(s), Inhale, Daily, use two inhalations of one capsule for each dose, X 30 days, # 30 EA, 2 Refill(s), Start Date: 05/29/16 14:08:00 CDT, Pharmacy: [facility] Special Instructions: use two inhalations of one capsule for each dose Start Date: 05/29/16 Stop Date: 08/27/16 Status: CompletedSpiriva 18 mcg inhalation capsule 1 cap(s), Inhale, Daily, use two inhalations of one capsule for each dose, # 30 cap(s), 5 Refill(s), Start Date: 08/27/16 7:35:04 [employer], Pharmacy: [facility] Special Instructions: use two inhalations of one capsule for each dose Start Date: 08/27/16 Stop Date: 02/23/17 Status: OrderedSpiriva Respimat 2.5 mcg/inh inhalation aerosol 2 puff(s), Inhale, Daily, # 1 EA, 3 Refill(s), Start Date: 05/29/16 13:05:08 CDT , Pharmacy: [facility], [id number], 06/16/17 Start Date: 05/29/16 Stop Date: 06/09/16 Status: CompletedSpiriva Respimat 2.5 mcg/inh inhalation aerosol 2 puff(s), Inhale, Daily, # 4 gm, 0 Refill(s), Start Date: 04/28/16 16:19:00 CDT , samples given to patient (Rx), [id number], 06/16/17 Start Date: 04/28/16 Stop Date: 05/29/16 Status: CompletedSymbicort 160 mcg-4.5 mcg/inh inhalation aerosol 2 puff(s), Inhale, BID, # 1 EA, 3 Refill(s), Start Date: 03/27/16 13:01:00 CDT, Pharmacy: [facility] Start Date: 03/27/16 Stop Date: 07/25/16 Status: OrderedtraMADol 50 mg oral tablet 1 tab(s), Oral, q4hr, PRN for pain, # 24 tab(s), 0 Refill(s), Start Date: 16:24:00 CDT Start Date: 06/01/14 Stop Date: 09/10/14 Status: CompletedtraMADol 50 mg oral tablet 1 tab(s), Oral, q4hr interval, # 30 tab(s), 0 Refill(s), Start Date: 12/02/16 11 :05:00 [employer], Pharmacy: [facility] Start Date: 12/02/16 Status: OrderedtraMADol 50 mg oral tablet See Instructions, PRN for pain, 1-2 tab(s) Oral q4-6hr interval, # 45 tab(s), 1 Refill(s), Start Date: 11/06/14 10:10:50 [employer], 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) Special Instructions: 1-2 tab(s) Oral q4-6hr interval Start Date: 11/06/14 Stop Date: 11/12/14 Status: CompletedtraMADol 50 mg oral tablet 1 tab(s), Oral, q12hr, PRN pain severe 8-10, # 30 tab(s), 0 Refill(s), Start Date: 06/26/15 13:56:00 CDT, Pharmacy: [facility] Start Date: 06/26/15 Stop Date: 07/17/15 Status: CompletedtraMADol 50 mg oral tablet 1 tab(s), Oral, q6hr interval, PRN for pain, # 60 tab(s), 0 Refill(s), Start Date: 09/10/14 14:35:17 [employer], 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) Start Date: 09/10/14 Stop Date: 10/23/14 Status: CompletedtraMADol 50 mg oral tablet 1 tab(s), Oral, q4hr, PRN for pain, # 40 tab(s), 0 Refill(s), Start Date: 13:05:00 [employer], Pharmacy: [facility] Start Date: 08/26/15 Stop Date: 09/25/15 Status: CompletedtraMADol 50 mg oral tablet See Instructions, PRN for pain, 1-2 tab(s) Oral q4-6hr interval, # 45 tab(s), 1 Refill(s), Start Date: 10/23/14 10:48:21 [employer], 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) Special Instructions: 1-2 tab(s) Oral q4-6hr interval Start Date: 10/23/14 Stop Date: 11/06/14 Status: CompletedtraMADol 50 mg oral tablet 1 tab(s), Oral, q12hr, PRN for pain, # 30 tab(s), 0 Refill(s), Start Date: 12/05 10:05:00 [employer], Pharmacy: [facility] Start Date: 12/05/14 Stop Date: [...] tab(s), 0 Refill(s), Start Date: 11/12/14 14:53:03 [employer], 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) Special Instructions: 1-2 tab(s) Oral q4-6hr interval Start Date: 11/12/14 Stop Date: 05/20/15 Status: CompletedtraMADol 50 mg oral tablet 1 tab(s), Oral, q12hr, PRN for pain, # 30 tab(s), 0 Refill(s), Start Date: 12/13 14:43:11 [employer], Pharmacy: [facility] Start Date: 12/13/14 Stop Date: 05/20/15 Status: CompletedTylenol with Codeine #3 oral tablet 2 tab(s), Oral, q6hr, # 16 tab(s), 0 Refill(s) Start Date: 03/13/14 Stop Date: 03/15/14 Status: CompletedValium 5 mg oral tablet 1 tab(s), Oral, QID, PRN for anxiety, X 7 days, # 28 tab(s), 0 Refill(s), Start Date: 10/13/16 17:12:00 [employer] Start Date: 10/13/16 Stop Date: 10/20/16 Status: Completedvenlafaxine 25 mg, Oral, BID, 0 Refill(s) Start Date: 06/01/14 Stop Date: 07/27/16 Status: Completedvenlafaxine 25 mg oral tablet 1 tab(s), Oral, BID, Start Date: 07/27/16 15:50:00 CDT Start Date: 07/27/16 Stop Date: 10/13/16 Status: Completedvenlafaxine 25 mg oral tablet 1 tab(s), Oral, TID, # 90 tab(s), 0 Refill(s), Start Date: 10/13/16 15:46:00 [employer] Start Date: 10/13/16 Status: OrderedVentolin HFA 90 mcg/inh inhalation aerosol 2 puff(s), Inhale, q4hr, PRN for wheezing, # 1 EA, 3 Refill(s), Start Date: 16:07:00 CDT, Pharmacy: [facility] Start Date: 06/09/16 Status: OrderedVentolin HFA [...] Refill(s), Start Date: 05/20/15 8:25:00 CDT, Pharmacy: [facility] Start Date: 05/20/15 Stop Date: 07/17/15 Status: [...] 06/01/14 Stop Date: 07/17/15 Status: Completed Results Patient Viewable Results Most recent to oldest [Reference Range]: 1 Estimated Creatinine Clearance 126.56 mL/min (12/04/16 3:43 PM) Immunizations Vaccine Date Refusal Reason influenza virus vaccine, inactivated 09/04/16 Procedures Procedure Date Related Diagnosis Body Site Arthroscopy Knee (Left)1 09/16/16 Colonoscopy2 08/21/16 Esophagogastroduodenoscopy3 08/21/16 Extraction4 Procedure on bone of ankle Procedure on knee - left - tendon repair Tubal ligation 1auto-populated from documented surgical [id number] from documented surgical [id number] from documented surgical [id number] Social History No data available for this section Assessment and Plan No data available for this section
--- OUTSIDE RECORDS SUMMARY | 2016-12-30 16:35 | XMS REPORT | Summary of Care ---
:1960 Author Organization [facility] Address [address] [place] [address] Care Team Providers Name Role Phone Gabrielle Smallwood Primary Care Physician Encounter Date(s): 03/10/16 - 03/10/16 [facility], [address] [place], [place] [address] Discharge Diagnosis: Tobacco use Discharge Diagnosis: Fatigue [...] EA, 0 Refill(s), Start Date: 12/16/15 20:03:00 ANIMAL TECHNICIAN Start Date: 12/16/15 Stop Date: 01/15/16 Status: Orderedalbuterol HFA puff(s), Inhale, QID, 0 Refill(s), Start Date: 09/25/15 13:27:00 ANIMAL TECHNICIAN Start Date: 09/25/15 Stop Date: 03/10/16 Status: [...] cap(s), 0 Refill(s), Start Date: 12/17/14 14:47:00 ANIMAL TECHNICIAN Start Date: 12/17/14 Stop Date: 02/25/15 Status: Completedcyclobenzaprine 10 mg, Oral, BID, 0 Refill(s) Start Date: 06/01/14 Status: Ordereddiclofenac 1% topical gel 1 maxwell, Topical, QID, # 100 gm, 0 Refill(s), Start Date: 06/27/15 10:56:00 CDT, Pharmacy: [facility] Start Date: 06/27/15 Stop Date: 03/10/16 Status: CompletedDME - Nebulizer 1 EA, NEB, 12/16/15, Criteria in Order Comments Met?, # 1 EA, 0 Refill(s), 20:03:00 ANIMAL TECHNICIAN, Supply Start Date: 12/16/15 Status: OrderedHYDROcodone-acetaminophen 5 mg-325 mg oral tablet 1 tab(s), Oral, q6hr, X 3 days, # 12 tab(s), 0 Refill(s), Start Date: 02/25/15 13:13:00 CDT Start Date: 02/25/15 Stop Date: 02/28/15 Status: CompletedHYDROcodone-acetaminophen 5 mg-325 mg oral tablet 2 tab(s), Oral, q6hr, X 3 days, # 15 tab(s), 0 Refill(s), Start Date: 11/26/14 14:42:00 ANIMAL TECHNICIAN Start Date: 11/26/14 Stop Date: 11/29/14 Status: [...] tab(s), 0 Refill(s), Start Date: 09/25/15 13:32:00 ANIMAL TECHNICIAN , Pharmacy: [facility] Start Date: 09/25/15 Stop Date: 03/10/16 Status: Completedibuprofen 800 mg oral tablet 1 tab(s), Oral, q6hr interval, PRN for pain, # 60 tab(s), 0 Refill(s), Start Date: 09/10/14 14:35:47 ANIMAL TECHNICIAN, 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) Start Date: 09/10/14 Stop Date: 10/08/14 Status: Completedibuprofen 800 mg oral tablet 1 tab(s), Oral, q6hr interval, PRN for pain, # 30 tab(s), 0 Refill(s), Start Date: 10/08/14 11:29:36 ANIMAL TECHNICIAN, Pharmacy: [facility] [id number] Start Date: 10/08/14 Stop Date: 10/29/14 Status: Completedibuprofen 800 mg oral tablet 1 tab(s), Oral, TID, PRN for pain, # 30 tab(s), 0 Refill(s), Start Date: 10:05:00 ANIMAL TECHNICIAN, Pharmacy: [facility] Start Date: 12/05/14 Stop Date: [...] 30 tab(s), 0 Refill(s), Start Date: 10:14:00 ANIMAL TECHNICIAN, Pharmacy: [facility] [id number] Start Date: 10/01/14 Stop Date: 10/08/14 Status: CompletedNorco 5 mg-325 mg oral tablet 1 tab(s), Oral, q4hr, PRN for pain, # 10 tab(s), 0 Refill(s), Start Date: 22:44:00 ANIMAL TECHNICIAN Start Date: 08/20/15 Stop Date: 08/24/15 Status: CompletedNorco 5 mg-325 mg oral tablet 1 tab(s), Oral, q4hr, # 30 tab(s), 0 Refill(s), Start Date: 06/05/15 11:12:00 CDT, Pharmacy: [facility] Start Date: 06/05/15 Stop Date: [...] tab(s), 0 Refill(s), Start Date: 08/27/14 10:45:01 ANIMAL TECHNICIAN, other reason (Rx) Special Instructions: 1-2 tab(s) Oral q6hr PRN pain Start Date: 08/27/14 Stop Date: 09/03/14 Status: CompletedNorco 5 mg-325 mg oral tablet 1 tab(s), Oral, q4hr, # 30 tab(s), 0 Refill(s), Start Date: 07/17/15 10:26:00 CDT, Pharmacy: [facility] Start Date: 07/17/15 Stop Date: 09/25/15 Status: CompletedNorco 5 mg-325 mg oral tablet 1 tab(s), Oral, q6hr, PRN for pain, # 30 tab(s), 0 Refill(s), Start Date: 11:02:00 ANIMAL TECHNICIAN, Pharmacy: [facility] Start Date: 10/29/14 Stop Date: 12/05/14 Status: CompletedNorco 5 mg-325 mg oral tablet See Instructions, 1-2tab(s) Oral q4-6hr prn pain, # 50 tab(s), 0 Refill(s), Start Date: 05/13/15 9:54:50 CDT, Pharmacy: [facility] Special Instructions: 1-2tab(s) Oral q4-6hr prn pain Start Date: 05/13/15 Stop Date: 05/20/15 Status: CompletedNorco 5 mg-325 mg oral tablet 2 tab(s), Oral, q6hr, PRN for pain, # 45 tab(s), 0 Refill(s), Start Date: 11:52:05 ANIMAL TECHNICIAN, other reason (Rx) Start Date: 10/15/14 Stop Date: 10/29/14 Status: CompletedNorco 5 mg-325 mg oral tablet 1 tab(s), Oral, q6hr interval, PRN for pain, # 30 tab(s), 0 Refill(s), Start Date: 06/17/15 10:34:42 CDT, Pharmacy: [facility] Start Date: 06/17/15 Stop Date: 06/26/15 Status: DiscontinuedNorco 5 mg-325 mg oral tablet 1 tab(s), Oral, q6hr, PRN for pain, # 30 tab(s), 0 Refill(s), Start Date: 11:00:00 ANIMAL TECHNICIAN, Pharmacy: [facility] [id number] Start Date: 10/29/14 Stop Date: 10/29/14 Status: DiscontinuedNorco 5 mg-325 mg oral tablet 2 tab(s), Oral, q6hr, PRN for pain, # 30 tab(s), 0 Refill(s), Start Date: 11:30:02 ANIMAL TECHNICIAN, other reason (Rx) Start Date: 10/08/14 Stop Date: 10/15/14 Status: CompletedNorco 5 mg-325 mg oral tablet See Instructions, 1-2 tab(s) Oral q6hr PRN pain, # 40 tab(s), 0 Refill(s), Start Date: 09/03/14 15:24:06 ANIMAL TECHNICIAN, other reason (Rx) Special Instructions: 1-2 tab(s) Oral q6hr PRN pain Start Date: 09/03/14 Stop Date: 10/29/14 Status: CompletedNorco 5 mg-325 mg oral tablet See Instructions, 1-2 tab(s) Oral q4-6hr PRN pain, # 30 tab(s), 0 Refill(s), Start Date: 08/20/14 15:25:27 ANIMAL TECHNICIAN, other reason (Rx) Special Instructions: 1-2 tab(s) [...] 0 Refill(s), Start Date: 11:30:00 CDT, Pharmacy: [facility] Start Date: 06/10/15 Stop Date: 06/17/15 Status: Completedomeprazole 40 mg oral delayed release capsule 1 cap(s), Oral, Daily, # 30 cap(s), 4 Refill(s), Start Date: 03/10/16 14:24:00 CDT, Pharmacy: [facility] Start Date: 03/10/16 Status: Orderedorphenadrine 100 mg oral tablet, extended release 1 tab(s), Oral, BID, # 10 tab(s), 0 Refill(s), Start Date: 07/10/15 19:44:00 CDT Start Date: 07/10/15 Stop Date: 03/10/16 Status: Completedpenicillin V potassium 500 mg oral tablet 1 tab(s), Oral, TID, X 7 days, # 21 tab(s), 0 Refill(s), Start Date: 11/26/14 14 :42:00 ANIMAL TECHNICIAN Start Date: 11/26/14 Stop Date: 12/03/14 Status: Completedpenicillin V potassium 500 mg oral tablet 1 tab(s), Oral, TID, # 30 tab(s), 0 Refill(s), Start Date: 01/13/16 19:53:00 CDT Start Date: 01/13/16 Stop Date: 03/10/16 Status: CompletedPercocet 5/325 oral tablet 1 tab(s), Oral, q4hr, PRN for pain, Do not work or drive with this medication, # 6 tab(s), 0 Refill(s), Start Date: 12/17/14 14:47:00 ANIMAL TECHNICIAN Special Instructions: Do not work or drive with this medication Start Date: 12/17/14 Stop Date: 12/19/14 Status: CompletedPercocet 5/325 oral tablet 2 tab(s), Oral, q4hr, # 60 tab(s), 0 Refill(s), Start Date: 05/20/15 8:25:00 CDT , Pharmacy: [facility] Start Date: 05/20/15 Stop Date: 05/29/15 Status: CompletedPercocet 5/325 oral tablet 2 tab(s), Oral, q4hr, # 40 tab(s), 0 Refill(s), Start Date: 05/29/15 14:40:46 CDT, Pharmacy: [facility] Start Date: 05/29/15 Stop Date: 06/05/15 Status: DiscontinuedPercocet 5/325 oral tablet 1 tab(s), Oral, q6hr interval, X 3 days, # 12 tab(s), 0 Refill(s), Start Date: 05/17/15 14:18:00 CDT Start Date: 05/17/15 Stop Date: 05/20/15 Status: CompletedSymbicort 160 mcg-4.5 mcg/inh inhalation aerosol 2 puff(s), Inhale, BID, # 1 EA, 3 Refill(s), Start Date: 03/27/16 13:01:00 CDT, Pharmacy: [facility] Start Date: 03/27/16 Stop Date: 07/25/16 Status: OrderedtraMADol 50 mg oral tablet 1 tab(s), Oral, q4hr, PRN for pain, # 24 tab(s), 0 Refill(s), Start Date: 16:24:00 CDT Start Date: 06/01/14 Stop Date: 09/10/14 Status: CompletedtraMADol 50 mg oral tablet See Instructions, PRN for pain, 1-2 tab(s) Oral q4-6hr interval, # 45 tab(s), 1 Refill(s), Start Date: 11/06/14 10:10:50 ANIMAL TECHNICIAN, 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) Special Instructions: 1-2 tab(s) Oral q4-6hr interval Start Date: 11/06/14 Stop Date: 11/12/14 Status: CompletedtraMADol 50 mg oral tablet 1 tab(s), Oral, q12hr, PRN pain severe 8-10, # 30 tab(s), 0 Refill(s), Start Date: 06/26/15 13:56:00 CDT, Pharmacy: [facility] Start Date: 06/26/15 Stop Date: 07/17/15 Status: CompletedtraMADol 50 mg oral tablet 1 tab(s), Oral, q6hr interval, PRN for pain, # 60 tab(s), 0 Refill(s), Start Date: 09/10/14 14:35:17 ANIMAL TECHNICIAN, 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) Start Date: 09/10/14 Stop Date: 10/23/14 Status: CompletedtraMADol 50 mg oral tablet 1 tab(s), Oral, q4hr, PRN for pain, # 40 tab(s), 0 Refill(s), Start Date: 13:05:00 ANIMAL TECHNICIAN, Pharmacy: [facility] Start Date: 08/26/15 Stop Date: 09/25/15 Status: CompletedtraMADol 50 mg oral tablet See Instructions, PRN for pain, 1-2 tab(s) Oral q4-6hr interval, # 45 tab(s), 1 Refill(s), Start Date: 10/23/14 10:48:21 ANIMAL TECHNICIAN, 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) Special Instructions: 1-2 tab(s) Oral q4-6hr interval Start Date: 10/23/14 Stop Date: 11/06/14 Status: CompletedtraMADol 50 mg oral tablet 1 tab(s), Oral, q12hr, PRN for pain, # 30 tab(s), 0 Refill(s), Start Date: 12/05 10:05:00 ANIMAL TECHNICIAN, Pharmacy: [facility] Start Date: 12/05/14 Stop Date: [...] tab(s), 0 Refill(s), Start Date: 11/12/14 14:53:03 ANIMAL TECHNICIAN, 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) Special Instructions: 1-2 tab(s) Oral q4-6hr interval Start Date: 11/12/14 Stop Date: 05/20/15 Status: CompletedtraMADol 50 mg oral tablet 1 tab(s), Oral, q12hr, PRN for pain, # 30 tab(s), 0 Refill(s), Start Date: 12/13 14:43:11 ANIMAL TECHNICIAN, Pharmacy: [facility] Start Date: 12/13/14 Stop Date: [...] Refill(s), Start Date: 05/20/15 8:25:00 CDT, Pharmacy: [facility] Start Date: 05/20/15 Stop Date: [...]
--- OUTSIDE RECORDS SUMMARY | 2016-12-30 16:36 | XMS REPORT | Summary of Care ---
:1960 Author Organization [facility] Address [address] [place] [address]- Care Team Providers Name Role Phone Gabrielle Smallwood Luisa Primary Care Physician Encounter Date(s): 03/17/16 - 03/17/16 [facility] [address] [place] [id number] Final: Dyspnea, unspecified Final: Other fatigue Final: Tobacco use Discharge Disposition: 01 Discharged to Home or Self Care Attending Physician: NATALEE Stoddard Admitting Physician: NATALEE Stoddard Vital Signs No data available for this section Problem List Condition Effective Dates Status Health Status Informant Depression(Confirmed) Active Fibromyalgia(Confirmed) Active patient Migraine(Confirmed) Active patient Wheezing(Confirmed) Active Allergies, Adverse Reactions, Alerts Substance Reaction Severity Status codeine Active gabapentin Severe Active Toradol Severe Active Medications albuterol 2.5 mg/3 mL (0.083%) inhalation solution 3 mL, Inhale, q6hr, # 25 EA, 0 Refill(s), Start Date: 12/16/15 20:03:00 PROCESS SAFETY ENGINEER Start Date: 12/16/15 Stop Date: 01/15/16 Status: Orderedalbuterol HFA puff(s), Inhale, QID, 0 Refill(s), Start Date: 09/25/15 13:27:00 PROCESS SAFETY ENGINEER Start Date: 09/25/15 Stop Date: 03/10/16 Status: [...] cap(s), 0 Refill(s), Start Date: 12/17/14 14:47:00 PROCESS SAFETY ENGINEER Start Date: 12/17/14 Stop Date: 02/25/15 Status: Completedcyclobenzaprine 10 mg, Oral, BID, 0 Refill(s) Start Date: 06/01/14 Status: Ordereddiclofenac 1% topical gel 1 maxwell, Topical, QID, # 100 gm, 0 Refill(s), Start Date: 06/27/15 10:56:00 CDT, Pharmacy: [facility] Start Date: 06/27/15 Stop Date: 03/10/16 Status: CompletedDME - Nebulizer 1 EA, NEB, 12/16/15, Criteria in Order Comments Met?, # 1 EA, 0 Refill(s), 20:03:00 PROCESS SAFETY ENGINEER, Supply Start Date: 12/16/15 Status: OrderedHYDROcodone-acetaminophen 5 mg-325 mg oral tablet 1 tab(s), Oral, q6hr, X 3 days, # 12 tab(s), 0 Refill(s), Start Date: 02/25/15 13:13:00 CDT Start Date: 02/25/15 Stop Date: 02/28/15 Status: CompletedHYDROcodone-acetaminophen 5 mg-325 mg oral tablet 2 tab(s), Oral, q6hr, X 3 days, # 15 tab(s), 0 Refill(s), Start Date: 11/26/14 14:42:00 PROCESS SAFETY ENGINEER Start Date: 11/26/14 Stop Date: 11/29/14 Status: [...] tab(s), 0 Refill(s), Start Date: 09/25/15 13:32:00 PROCESS SAFETY ENGINEER , Pharmacy: [facility] Start Date: 09/25/15 Stop Date: 03/10/16 Status: Completedibuprofen 800 mg oral tablet 1 tab(s), Oral, q6hr interval, PRN for pain, # 60 tab(s), 0 Refill(s), Start Date: 09/10/14 14:35:47 PROCESS SAFETY ENGINEER, 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) Start Date: 09/10/14 Stop Date: 10/08/14 Status: Completedibuprofen 800 mg oral tablet 1 tab(s), Oral, q6hr interval, PRN for pain, # 30 tab(s), 0 Refill(s), Start Date: 10/08/14 11:29:36 PROCESS SAFETY ENGINEER, Pharmacy: [facility] [id number] Start Date: 10/08/14 Stop Date: 10/29/14 Status: Completedibuprofen 800 mg oral tablet 1 tab(s), Oral, TID, PRN for pain, # 30 tab(s), 0 Refill(s), Start Date: 10:05:00 PROCESS SAFETY ENGINEER, Pharmacy: [facility] Start Date: 12/05/14 Stop Date: 03/10/16 [...] 30 tab(s), 0 Refill(s), Start Date: 10:14:00 PROCESS SAFETY ENGINEER, Pharmacy: [facility] [id number] Start Date: 10/01/14 Stop Date: 10/08/14 Status: CompletedNorco 5 mg-325 mg oral tablet 1 tab(s), Oral, q4hr, PRN for pain, # 10 tab(s), 0 Refill(s), Start Date: 22:44:00 PROCESS SAFETY ENGINEER Start Date: 08/20/15 Stop Date: 08/24/15 Status: CompletedNorco 5 mg-325 mg oral tablet 1 tab(s), Oral, q4hr, # 30 tab(s), 0 Refill(s), Start Date: 06/05/15 11:12:00 CDT, Pharmacy: [facility] Start Date: 06/05/15 Stop Date: 06/26/15 Status: [...] tab(s), 0 Refill(s), Start Date: 08/27/14 10:45:01 PROCESS SAFETY ENGINEER, other reason (Rx) Special Instructions: 1-2 tab(s) Oral q6hr PRN pain Start Date: 08/27/14 Stop Date: 09/03/14 Status: CompletedNorco 5 mg-325 mg oral tablet 1 tab(s), Oral, q4hr, # 30 tab(s), 0 Refill(s), Start Date: 07/17/15 10:26:00 CDT, Pharmacy: [facility] Start Date: 07/17/15 Stop Date: 09/25/15 Status: CompletedNorco 5 mg-325 mg oral tablet 1 tab(s), Oral, q6hr, PRN for pain, # 30 tab(s), 0 Refill(s), Start Date: 11:02:00 PROCESS SAFETY ENGINEER, Pharmacy: [facility] Start Date: 10/29/14 Stop Date: 12/05/14 Status: CompletedNorco 5 mg-325 mg oral tablet See Instructions, 1-2tab(s) Oral q4-6hr prn pain, # 50 tab(s), 0 Refill(s), Start Date: 05/13/15 9:54:50 CDT, Pharmacy: [facility] Special Instructions: 1-2tab(s) Oral q4-6hr prn pain Start Date: 05/13/15 Stop Date: 05/20/15 Status: CompletedNorco 5 mg-325 mg oral tablet 2 tab(s), Oral, q6hr, PRN for pain, # 45 tab(s), 0 Refill(s), Start Date: 11:52:05 PROCESS SAFETY ENGINEER, other reason (Rx) Start Date: 10/15/14 Stop Date: 10/29/14 Status: CompletedNorco 5 mg-325 mg oral tablet 1 tab(s), Oral, q6hr interval, PRN for pain, # 30 tab(s), 0 Refill(s), Start Date: 06/17/15 10:34:42 CDT, Pharmacy: [facility] Start Date: 06/17/15 Stop Date: 06/26/15 Status: DiscontinuedNorco 5 mg-325 mg oral tablet 1 tab(s), Oral, q6hr, PRN for pain, # 30 tab(s), 0 Refill(s), Start Date: 11:00:00 PROCESS SAFETY ENGINEER, [id number] Start Date: 10/29/14 Stop Date: 10/29/14 Status: DiscontinuedNorco 5 mg-325 mg oral tablet 2 tab(s), Oral, q6hr, PRN for pain, # 30 tab(s), 0 Refill(s), Start Date: 11:30:02 PROCESS SAFETY ENGINEER, other reason (Rx) Start Date: 10/08/14 Stop Date: 10/15/14 Status: CompletedNorco 5 mg-325 mg oral tablet See Instructions, 1-2 tab(s) Oral q6hr PRN pain, # 40 tab(s), 0 Refill(s), Start Date: 09/03/14 15:24:06 PROCESS SAFETY ENGINEER, other reason (Rx) Special Instructions: 1-2 tab(s) Oral q6hr PRN pain Start Date: 09/03/14 Stop Date: 10/29/14 Status: CompletedNorco 5 mg-325 mg oral tablet See Instructions, 1-2 tab(s) Oral q4-6hr PRN pain, # 30 tab(s), 0 Refill(s), Start Date: 08/20/14 15:25:27 PROCESS SAFETY ENGINEER, other reason (Rx) Special Instructions: 1-2 tab(s) [...] 0 Refill(s), Start Date: 11:30:00 CDT, Pharmacy: [facility] Start Date: 06/10/15 Stop Date: 06/17/15 Status: Completedomeprazole 40 mg oral delayed release capsule 1 cap(s), Oral, Daily, # 30 cap(s), 4 Refill(s), Start Date: 03/10/16 14:24:00 CDT, Pharmacy: [facility] Start Date: 03/10/16 Status: Orderedorphenadrine 100 mg oral tablet, extended release 1 tab(s), Oral, BID, # 10 tab(s), 0 Refill(s), Start Date: 07/10/15 19:44:00 CDT Start Date: 07/10/15 Stop Date: 03/10/16 Status: Completedpenicillin V potassium 500 mg oral tablet 1 tab(s), Oral, TID, X 7 days, # 21 tab(s), 0 Refill(s), Start Date: 11/26/14 14 :42:00 PROCESS SAFETY ENGINEER Start Date: 11/26/14 Stop Date: 12/03/14 Status: Completedpenicillin V potassium 500 mg oral tablet 1 tab(s), Oral, TID, # 30 tab(s), 0 Refill(s), Start Date: 01/13/16 19:53:00 CDT Start Date: 01/13/16 Stop Date: 03/10/16 Status: CompletedPercocet 5/325 oral tablet 1 tab(s), Oral, q4hr, PRN for pain, Do not work or drive with this medication, # 6 tab(s), 0 Refill(s), Start Date: 12/17/14 14:47:00 PROCESS SAFETY ENGINEER Special Instructions: Do not work or drive with this medication Start Date: 12/17/14 Stop Date: 12/19/14 Status: CompletedPercocet 5/325 oral tablet 2 tab(s), Oral, q4hr, # 60 tab(s), 0 Refill(s), Start Date: 05/20/15 8:25:00 CDT , Pharmacy: [facility] Start Date: 05/20/15 Stop Date: 05/29/15 Status: CompletedPercocet 5/325 oral tablet 2 tab(s), Oral, q4hr, # 40 tab(s), 0 Refill(s), Start Date: 05/29/15 14:40:46 CDT, Pharmacy: [facility] Start Date: 05/29/15 Stop Date: 06/05/15 Status: DiscontinuedPercocet 5/325 oral tablet 1 tab(s), Oral, q6hr interval, X 3 days, # 12 tab(s), 0 Refill(s), Start Date: 05/17/15 14:18:00 CDT Start Date: 05/17/15 Stop Date: 05/20/15 Status: CompletedSymbicort 160 mcg-4.5 mcg/inh inhalation aerosol 2 puff(s), Inhale, BID, # 1 EA, 3 Refill(s), Start Date: 03/27/16 13:01:00 CDT, Pharmacy: [facility] Start Date: 03/27/16 Stop Date: 07/25/16 Status: OrderedtraMADol 50 mg oral tablet 1 tab(s), Oral, q4hr, PRN for pain, # 24 tab(s), 0 Refill(s), Start Date: 16:24:00 CDT Start Date: 06/01/14 Stop Date: 09/10/14 Status: CompletedtraMADol 50 mg oral tablet See Instructions, PRN for pain, 1-2 tab(s) Oral q4-6hr interval, # 45 tab(s), 1 Refill(s), Start Date: 11/06/14 10:10:50 PROCESS SAFETY ENGINEER, 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) Special Instructions: 1-2 tab(s) Oral q4-6hr interval Start Date: 11/06/14 Stop Date: 11/12/14 Status: CompletedtraMADol 50 mg oral tablet 1 tab(s), Oral, q12hr, PRN pain severe 8-10, # 30 tab(s), 0 Refill(s), Start Date: 06/26/15 13:56:00 CDT, Pharmacy: [facility] Start Date: 06/26/15 Stop Date: 07/17/15 Status: CompletedtraMADol 50 mg oral tablet 1 tab(s), Oral, q6hr interval, PRN for pain, # 60 tab(s), 0 Refill(s), Start Date: 09/10/14 14:35:17 PROCESS SAFETY ENGINEER, 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) Start Date: 09/10/14 Stop Date: 10/23/14 Status: CompletedtraMADol 50 mg oral tablet 1 tab(s), Oral, q4hr, PRN for pain, # 40 tab(s), 0 Refill(s), Start Date: 13:05:00 PROCESS SAFETY ENGINEER, Pharmacy: [facility] Start Date: 08/26/15 Stop Date: 09/25/15 Status: CompletedtraMADol 50 mg oral tablet See Instructions, PRN for pain, 1-2 tab(s) Oral q4-6hr interval, # 45 tab(s), 1 Refill(s), Start Date: 10/23/14 10:48:21 PROCESS SAFETY ENGINEER, 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) Special Instructions: 1-2 tab(s) Oral q4-6hr interval Start Date: 10/23/14 Stop Date: 11/06/14 Status: CompletedtraMADol 50 mg oral tablet 1 tab(s), Oral, q12hr, PRN for pain, # 30 tab(s), 0 Refill(s), Start Date: 12/05 10:05:00 PROCESS SAFETY ENGINEER, Pharmacy: [facility] Start Date: 12/05/14 Stop Date: 12/13/14 [...] tab(s), 0 Refill(s), Start Date: 11/12/14 14:53:03 PROCESS SAFETY ENGINEER, 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) Special Instructions: 1-2 tab(s) Oral q4-6hr interval Start Date: 11/12/14 Stop Date: 05/20/15 Status: CompletedtraMADol 50 mg oral tablet 1 tab(s), Oral, q12hr, PRN for pain, # 30 tab(s), 0 Refill(s), Start Date: 12/13 14:43:11 PROCESS SAFETY ENGINEER, Pharmacy: [facility] Start Date: 12/13/14 Stop Date: 05/20/15 [...] Refill(s), Start Date: 05/20/15 8:25:00 CDT, Pharmacy: [facility] Start Date: 05/20/15 Stop Date: 07/17/15 [...]
--- OUTSIDE RECORDS SUMMARY | 2016-12-30 16:36 | XMS REPORT | Summary of Care ---
:1960 Author Organization [facility] Address [address] [place] [id number] Care Team Providers Name Role Phone Gabrielle Smallwood Primary Care Physician Encounter Date(s): 10/31/16 - 10/31/[address] [id number]- [facility] Discharge Diagnosis: Lumbar back pain with radiculopathy affecting right lower extremity Discharge Disposition: 01 Discharged to Home or Self Care Attending Physician: ANGUS Goss Admitting Physician: ANGUS Goss Vital Signs Most recent to oldest [Reference Range]: 1 2 Temperature Temporal Artery [36.0-38.0 DegC] 37.2 DegC (10/31/16 3:43 PM) Heart Rate Monitored [60-100 bpm] 95 bpm 101 bpm (10/31/16 5:06 PM) *HI* (10/31/16 3:43 PM) Respiratory Rate [12-20 br/min] 16 br/min 20 br/min (10/31/16 5:06 PM) (10/31/16 3:43 PM) SpO2 97 % 98 % (10/31/16 5:06 PM) (10/31/16 3:43 PM) Blood Pressure [90-130/60-90 mmHg] 130/89mmHg 133/91mmHg (10/31/16 5:06 PM) *HI* (10/31/16 3:43 PM) Weight Estimated 137.27 kg (10/31/16 3:43 PM) Weight Dosing 137.27 kg1 (10/31/16 3:47 PM) 1Result Comment: This result was because the dosing weight was either not entered or it is>30 days old. This result is based off: Weight Estimated October 31, 2016 15:43:00 TRANSIT PROOF MACHINE OPERATOR by Caprice Srivastava RN Problem List Condition Effective Dates Status [...] mL, 2 Refill(s), Start Date: 10/06/16 14:00:04 TRANSIT PROOF MACHINE OPERATOR, [facility] Start Date: 10/06/16 Stop Date: 01/04/17 Status: Orderedalbuterol 2.5 mg/3 mL (0.083%) inhalation solution 3 mL, Inhale, q6hr, X 30 days, # 25 EA, 0 Refill(s), Start Date: 06/09/16 16:07: 01 CDT, [facility] Start Date: 06/09/16 Stop Date: 10/06/16 Status: Completedalbuterol 2.5 mg/3 mL (0.083%) inhalation solution 3 mL, Inhale, q6hr, # 25 EA, 0 Refill(s), Start Date: 12/16/15 20:03:00 TRANSIT PROOF MACHINE OPERATOR Start Date: 12/16/15 Stop Date: 06/09/16 Status: Discontinuedalbuterol HFA puff(s), Inhale, QID, 0 Refill(s), Start Date: 09/25/15 13:27:00 TRANSIT PROOF MACHINE OPERATOR Start Date: 09/25/15 Stop Date: 03/10/16 Status: Completedamitriptyline 10 mg oral tablet 1 tab(s), Oral, HS, 0 Refill(s), Start Date: 07/26/14 8:18:00 CDT Start Date: 07/26/14 Stop Date: 09/21/16 Status: CompletedAugmentin 875 mg-125 mg oral tablet 875 mg, Oral, q12hr interval, # 20 tab(s), 0 Refill(s), Start Date: 07/20/16 17: 32:00 CDT, Pharmacy: [facility] Start Date: 07/20/16 Stop Date: 07/30/16 Status: DiscontinuedbusPIRone 10 mg oral tablet 1 tab(s), Oral, TID, # 90 tab(s), 0 Refill(s), Start Date: 03/10/16 13:27:00 CDT Start Date: 03/10/16 Status: Orderedcephalexin 500 mg oral capsule 1 cap(s), Oral, QID, # 40 cap(s), 0 Refill(s), Start Date: 09/21/16 15:32:00 TRANSIT PROOF MACHINE OPERATOR , Pharmacy: [facility] Start Date: 09/21/16 Stop Date: 10/13/16 Status: Completedclindamycin 300 mg oral capsule 1 cap(s), Oral, q6hr, # 28 cap(s), 0 Refill(s), Start Date: 12/17/14 14:47:00 TRANSIT PROOF MACHINE OPERATOR Start Date: 12/17/14 Stop Date: 02/25/15 Status: [...] Refill(s), Start Date: 04/28/16 16:03:00 CDT, Pharmacy: [facility] Start Date: 04/28/16 Stop Date: 06/09/16 Status: Completeddiclofenac 1% topical gel 1 maxwell, Topical, QID, # 100 gm, 0 Refill(s), Start Date: 06/27/15 10:56:00 CDT, Pharmacy: [facility] Start Date: 06/27/15 Stop Date: 03/10/16 Status: CompletedDilaudid 2 mg oral tablet 1 tab(s), Oral, q8hr interval, PRN for pain, # 12 tab(s), 0 Refill(s), Start Date: 10/22/16 19:09:00 TRANSIT PROOF MACHINE OPERATOR Start Date: 10/22/16 Stop Date: 10/31/16 Status: CompletedDilaudid 2 mg oral tablet 1 tab(s), Oral, q4hr, PRN for pain, # 12 tab(s), 0 Refill(s), Start Date: 16:54:00 TRANSIT PROOF MACHINE OPERATOR Start Date: 10/31/16 Status: OrderedDME - Nebulizer 1 EA, NEB, 12/16/15, Criteria in Order Comments Met?, # 1 EA, 0 Refill(s), 20:03:00 TRANSIT PROOF MACHINE OPERATOR, Supply Start Date: 12/16/15 Status: OrderedFlexeril 10 [...] tab(s), 0 Refill(s), Start Date: 11/26/14 14:42:00 TRANSIT PROOF MACHINE OPERATOR Start Date: 11/26/14 Stop Date: 11/29/14 Status: [...] 0 Refill(s) , Start Date: 10/22/16 20:47:00 TRANSIT PROOF MACHINE OPERATOR Start Date: 10/22/16 Stop Date: 10/27/16 Status: Completedhydrocodone-acetaminophen 5mg-325mg oral tablet 2 tab(s), Oral, q4hr, PRN for pain, # 20 tab(s), 0 Refill(s), Start Date: 17:11:00 TRANSIT PROOF MACHINE OPERATOR Start Date: 10/31/16 Stop Date: 11/03/16 Status: Orderedibuprofen 800 mg oral tablet 1 tab(s), Oral, TID, PRN for pain, # 30 tab(s), 0 Refill(s), Start Date: 19:39:00 CDT Start Date: 03/13/14 Stop Date: 09/10/14 Status: Completedibuprofen 800 mg oral tablet 1 tab(s), Oral, TID, # 30 tab(s), 0 Refill(s), Start Date: 09/25/15 13:32:00 TRANSIT PROOF MACHINE OPERATOR , Pharmacy: [facility] Start Date: 09/25/15 Stop Date: 03/10/16 Status: Completedibuprofen 800 mg oral tablet 1 tab(s), Oral, q6hr interval, PRN for pain, # 60 tab(s), 0 Refill(s), Start Date: 09/10/14 14:35:47 TRANSIT PROOF MACHINE OPERATOR, 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) Start Date: 11/24/14 Stop Date: 10/08/14 Status: Completedibuprofen 800 mg oral tablet 1 tab(s), Oral, q6hr interval, PRN for pain, # 30 tab(s), 0 Refill(s), Start Date: 10/08/14 11:29:36 TRANSIT PROOF MACHINE OPERATOR, Pharmacy: [facility] [id number] Start Date: 10/08/14 Stop Date: 10/29/14 Status: Completedibuprofen 800 mg oral tablet 1 tab(s), Oral, TID, PRN for pain, # 30 tab(s), 0 Refill(s), Start Date: 10:05:00 TRANSIT PROOF MACHINE OPERATOR, Pharmacy: [facility] Start Date: 12/05/14 Stop Date: 03/10/16 Status: Completedibuprofen 800 mg oral tablet 1 tab(s), Oral, TID, # 30 tab(s), 0 Refill(s), Start Date: 08/26/16 8:54:00 TRANSIT PROOF MACHINE OPERATOR , Pharmacy: [facility] Start Date: 08/26/16 Status: Orderedindomethacin 50 mg oral capsule 1 cap(s), Oral, TID, PRN for pain, X 10 days, # 30 cap(s), 0 Refill(s), Start Date: 10/13/16 17:12:00 TRANSIT PROOF MACHINE OPERATOR Start Date: 10/13/16 Stop Date: 10/23/16 Status: CompletedLevaquin 750 mg oral tablet 1 tab(s), Oral, q24hr interval, # 7 tab(s), 0 Refill(s), Start Date: 04/28/16 15 :56:00 CDT, Pharmacy: [facility] Start Date: 04/28/16 Stop Date: 06/09/16 Status: Completedlisinopril 10 mg oral tablet 1 tab(s), Oral, Daily, # 30 tab(s), 5 Refill(s), Start Date: 10/22/16 16:07:58 TRANSIT PROOF MACHINE OPERATOR, Pharmacy: [facility] Start Date: 10/22/16 Status: Orderedlisinopril 10 mg oral tablet 1 tab(s), Oral, Daily, # 30 tab(s), 5 Refill(s), Start Date: 04/28/16 15:59:00 CDT, Pharmacy: [facility] Start Date: 04/28/16 Stop Date: 10/22/16 Status: CompletedMedrol Dosepak 4 mg oral tablet 1 packet(s), Oral, Per Package Label, as directed on package labeling, X 6 days , # 21 tab(s), 0 Refill(s), Start Date: 10/13/16 17:12:00 TRANSIT PROOF MACHINE OPERATOR Start Date: 10/13/16 Stop Date: 10/19/16 Status: Completedmeloxicam 15 mg, Oral, Daily, 0 Refill(s) Start Date: 06/01/14 Stop Date: 07/27/16 Status: Completedmeloxicam 15 mg oral tablet 1 tab(s), Oral, Daily, Start Date: 07/27/16 15:49:00 CDT Start Date: 07/27/16 Status: OrderedNorco 5 mg-325 mg oral tablet See Instructions, 1-2tab(s) Oral q4-6hr prn pain, # 60 tab(s), 0 Refill(s), Start Date: 05/03/15 9:04:44 CDT Start Date: 05/03/15 Stop Date: 05/13/15 Status: CompletedNorco 5 mg-325 mg oral tablet See Instructions, 1-2 po Q 4-6 hrs prn pain, # 60 tab(s), 0 Refill(s), Start Date: 09/16/16 12:26:21 TRANSIT PROOF MACHINE OPERATOR, Pharmacy: [facility] Start Date: 09/16/16 Stop Date: 09/23/16 Status: CompletedNorco 5 mg-325 mg oral tablet 2 tab(s), Oral, q6hr, PRN for pain, # 30 tab(s), 0 Refill(s), Start Date: 10:14:00 TRANSIT PROOF MACHINE OPERATOR, Pharmacy: [facility] [id number] Start Date: 10/01/14 Stop Date: 10/08/14 Status: CompletedNorco 5 mg-325 mg oral tablet 1 tab(s), Oral, q4hr, PRN for pain, # 10 tab(s), 0 Refill(s), Start Date: 22:44:00 TRANSIT PROOF MACHINE OPERATOR Start Date: 08/20/15 Stop Date: 08/24/15 Status: CompletedNorco 5 mg-325 mg oral tablet See Instructions, 1 po Q 4-6 hrs prn pain, # 30 tab(s), 0 Refill(s), Start Date : 09/08/16 10:59:35 TRANSIT PROOF MACHINE OPERATOR, Pharmacy: [facility] Start Date: 09/08/16 Stop Date: 09/14/16 Status: CompletedNorco 5 mg-325 mg oral tablet 1 tab(s), Oral, q4hr, # 30 tab(s), 0 Refill(s), Start Date: 06/05/15 11:12:00 CDT, Pharmacy: [facility] Start Date: 06/05/15 Stop Date: 06/26/15 Status: DiscontinuedNorco 5 mg-325 mg oral tablet 1 tab(s), Oral, q6hr, # 40 tab(s), 0 Refill(s), Start Date: 08/17/16 12:42:00 CDT, Pharmacy: [facility] Start Date: 08/17/16 Stop Date: 08/26/16 Status: CompletedNorco 5 mg-325 mg oral tablet See Instructions, 1-2tab(s) Oral q4-6hr prn pain, # 60 tab(s), 0 Refill(s), Start Date: 04/23/15 11:36:00 CDT Start Date: 04/23/15 Stop Date: 05/03/15 Status: CompletedNorco 5 mg-325 mg oral tablet 1 tab(s), Oral, q6hr interval, PRN pain moderate 4-7, Use sparingly, # 60 tab(s) , 0 Refill(s), Start Date: 09/23/16 14:55:00 TRANSIT PROOF MACHINE OPERATOR, Pharmacy: [facility] Start Date: 09/23/16 Stop Date: 10/01/16 Status: DiscontinuedNorco 5 mg-325 mg oral tablet See Instructions, 1-2 tab(s) Oral q6hr PRN pain, # 30 tab(s), 0 Refill(s), Start Date: 08/27/14 10:45:01 TRANSIT PROOF MACHINE OPERATOR, other reason (Rx) Start Date: 08/27/14 Stop Date: 09/03/14 Status: CompletedNorco 5 mg-325 mg oral tablet 1 tab(s), Oral, q4hr, PRN for pain, X 3 days, # 15 tab(s), 0 Refill(s), Start Date: 09/04/16 17:08:00 TRANSIT PROOF MACHINE OPERATOR Start Date: 09/04/16 Stop Date: 09/07/16 Status: CompletedNorco 5 mg-325 mg oral tablet See Instructions, 1 po Q 4-6 hrs prn pain, # 12 tab(s), 0 Refill(s), Start Date : 09/14/16 11:50:00 TRANSIT PROOF MACHINE OPERATOR, Pharmacy: [facility] Start Date: 09/14/16 Stop Date: 09/16/16 Status: CompletedNorco 5 mg-325 mg oral tablet 1 tab(s), Oral, q6hr, # 40 tab(s), 0 Refill(s), Start Date: 08/07/16 11:55:00 CDT, Pharmacy: [facility] Start Date: 08/07/16 Stop Date: 08/17/16 Status: CompletedNorco 5 mg-325 mg oral tablet 1 tab(s), Oral, q4hr, # 30 tab(s), 0 Refill(s), Start Date: 07/17/15 10:26:00 CDT, Pharmacy: [facility] Start Date: 07/17/15 Stop Date: 09/25/15 Status: CompletedNorco 5 mg-325 mg oral tablet 1 tab(s), Oral, q6hr, PRN for pain, # 30 tab(s), 0 Refill(s), Start Date: 11:02:00 TRANSIT PROOF MACHINE OPERATOR, Pharmacy: [facility] Start Date: 10/29/14 Stop Date: 12/05/14 Status: CompletedNorco 5 mg-325 mg oral tablet See Instructions, 1-2tab(s) Oral q4-6hr prn pain, # 50 tab(s), 0 Refill(s), Start Date: 05/13/15 9:54:50 CDT, Pharmacy: [facility] Start Date: 05/13/15 Stop Date: 05/20/15 Status: CompletedNorco 5 mg-325 mg oral tablet 1 tab(s), Oral, q6hr interval, not to exceed 8 tablets/day, # 40 tab(s), 0 Refill(s), Start Date: 10/01/16 11:17:00 TRANSIT PROOF MACHINE OPERATOR, Pharmacy: [facility] Start Date: 10/01/16 Stop Date: 10/13/16 Status: CompletedNorco 5 mg-325 mg oral tablet 2 tab(s), Oral, q6hr, PRN for pain, # 45 tab(s), 0 Refill(s), Start Date: 11:52:05 TRANSIT PROOF MACHINE OPERATOR, other reason (Rx) Start Date: 10/15/14 Stop Date: 10/29/14 Status: CompletedNorco 5 mg-325 mg oral tablet 1 tab(s), Oral, q6hr interval, PRN for pain, # 30 tab(s), 0 Refill(s), Start Date: 06/17/15 10:34:42 CDT, Pharmacy: [facility] Start Date: 06/17/15 Stop Date: 06/26/15 Status: DiscontinuedNorco 5 mg-325 mg oral tablet 1 tab(s), Oral, q6hr interval, # 30 tab(s), 0 Refill(s), Start Date: 10/15/16 16 :23:00 TRANSIT PROOF MACHINE OPERATOR, Pharmacy: [facility] Start Date: 10/15/16 Stop Date: 10/31/16 Status: CompletedNorco 5 mg-325 mg oral tablet 1 tab(s), Oral, q6hr, # 40 tab(s), 0 Refill(s), Start Date: 07/30/16 10:06:00 CDT, Pharmacy: [facility] Start Date: 07/30/16 Stop Date: 08/07/16 Status: CompletedNorco 5 mg-325 mg oral tablet 1 tab(s), Oral, q6hr, PRN for pain, # 30 tab(s), 0 Refill(s), Start Date: 11:00:00 TRANSIT PROOF MACHINE OPERATOR, Pharmacy: [facility] [id number] Start Date: 10/29/14 Stop Date: 10/29/14 Status: DiscontinuedNorco 5 mg-325 mg oral tablet 2 tab(s), Oral, q6hr, PRN for pain, # 30 tab(s), 0 Refill(s), Start Date: 11:30:02 TRANSIT PROOF MACHINE OPERATOR, other reason (Rx) Start Date: 10/08/14 Stop Date: 10/15/14 Status: CompletedNorco 5 mg-325 mg oral tablet See Instructions, 1-2 tab(s) Oral q6hr PRN pain, # 40 tab(s), 0 Refill(s), Start Date: 09/03/14 15:24:06 TRANSIT PROOF MACHINE OPERATOR, other reason (Rx) Start Date: 09/03/14 Stop Date: 10/29/14 Status: CompletedNorco 5 mg-325 mg oral tablet See Instructions, 1-2 tab(s) Oral q4-6hr PRN pain, # 30 tab(s), 0 Refill(s), Start Date: 08/20/14 15:25:27 TRANSIT PROOF MACHINE OPERATOR, other reason (Rx) Start Date: 08/20/14 Stop Date: 08/27/14 Status: CompletedNorco 5 mg-325 mg oral tablet 1 tab(s), Oral, q6hr, # 30 tab(s), 0 Refill(s), Start Date: 08/26/16 8:54:54 TRANSIT PROOF MACHINE OPERATOR , Pharmacy: [facility] Start Date: 08/26/16 Stop Date: 09/08/16 Status: CompletedNorco 5 mg-325 mg oral tablet See Instructions, 1-2 tab(s) Oral q4-6hr PRN pain, # 30 tab(s), 0 Refill(s), Start Date: 08/14/14 8:40:00 CDT Start Date: 08/14/14 Stop Date: 08/20/14 Status: CompletedNorco 5 mg-325 mg oral tablet 1 tab(s), Oral, q4hr, PRN for pain, # 40 tab(s), 0 Refill(s), Start Date: 11:30:00 CDT, Pharmacy: [facility] Start Date: 06/10/15 Stop Date: 06/17/15 Status: Completedomeprazole 40 mg oral delayed release capsule 1 cap(s), Oral, Daily, 0 Refill(s), Start Date: 06/09/16 15:12:00 CDT Start Date: 06/09/16 Stop Date: 08/17/16 Status: Discontinuedomeprazole 40 mg oral delayed release capsule 1 cap(s), Oral, Daily, # 30 cap(s), 4 Refill(s), Start Date: 03/10/16 14:24:00 CDT, Pharmacy: [facility] Start Date: 03/10/16 Stop Date: 04/28/16 Status: Discontinuedomeprazole 40 mg oral delayed release capsule 1 cap(s), Oral, Daily, # 30 cap(s), 3 Refill(s), Start Date: 08/17/16 13:57:00 CDT, Pharmacy: [facility] Start Date: 08/17/16 Stop Date: 12/15/16 Status: Orderedorphenadrine 100 mg oral tablet, extended release 1 tab(s), Oral, BID, # 10 tab(s), 0 Refill(s), Start Date: 07/10/15 19:44:00 CDT Start Date: 07/10/15 Stop Date: 03/10/16 Status: Completedpenicillin V potassium 500 mg oral tablet 1 tab(s), Oral, TID, X 7 days, # 21 tab(s), 0 Refill(s), Start Date: 11/26/14 14 :42:00 TRANSIT PROOF MACHINE OPERATOR Start Date: 11/26/14 Stop Date: 12/03/14 Status: Completedpenicillin V potassium 500 mg oral tablet 1 tab(s), Oral, TID, # 30 tab(s), 0 Refill(s), Start Date: 01/13/16 19:53:00 CDT Start Date: 01/13/16 Stop Date: 03/10/16 Status: CompletedPercocet 5/325 oral tablet 1 tab(s), Oral, q4hr, PRN for pain, Do not work or drive with this medication, # 6 tab(s), 0 Refill(s), Start Date: 12/17/14 14:47:00 TRANSIT PROOF MACHINE OPERATOR Start Date: 12/17/14 Stop Date: 12/19/14 Status: CompletedPercocet 5/325 oral tablet 1 tab(s), Oral, q6hr, PRN for pain, X 3 days, # 12 tab(s), 0 Refill(s), Start Date: 07/21/16 20:10:00 CDT Start Date: 07/21/16 Stop Date: 07/24/16 Status: CompletedPercocet 5/325 oral tablet 2 tab(s), Oral, q4hr, # 60 tab(s), 0 Refill(s), Start Date: 05/20/15 8:25:00 CDT , Pharmacy: [facility] Start Date: 05/20/15 Stop Date: 05/29/15 Status: CompletedPercocet 5/325 oral tablet 2 tab(s), Oral, q4hr, # 40 tab(s), 0 Refill(s), Start Date: 05/29/15 14:40:46 CDT, Pharmacy: [facility] Start Date: 05/29/15 Stop Date: 06/05/15 [...] ), Start Date: 07/17/16 14:03:00 CDT, Pharmacy: [facility] Start Date: 07/17/16 Stop Date: 09/04/16 Status: CompletedpredniSONE 10 mg oral tablet See Instructions, 40mg daily x 3d, 30mg daily x 3d, 20mg daily x 3d, 10mg daily x 3d, # 30 tab(s), 0 Refill(s), Start Date: 07/20/16 17:33:00 CDT, Pharmacy: [facility] Start Date: 07/20/16 Stop Date: 07/30/16 Status: DiscontinuedpredniSONE 10 mg oral tablet See Instructions, 40 mg qd x 3d, 30 mg qd x 3d, 20 mg qd x 3d, 10 mg qd x 3d. with food, # 30 QS, 0 Refill(s), Start Date: 04/28/16 15:56:00 CDT, Pharmacy: [facility] Start Date: 04/28/16 Stop Date: 06/09/16 Status: CompletedpredniSONE 50 mg oral tablet 1 tab(s), Oral, [...] Refill(s), Start Date: 06/29/16 10:57:00 CDT, Pharmacy: [facility] Start Date: 06/29/16 Stop Date: 07/27/16 Status: CompletedRequip 0.25 mg oral tablet 1 tab(s), Oral, Daily, take one at hs about 30 minutes prior to hs, may increase to 2 po at night after 3-5 days. with food, # 45 tab(s), 3 Refill(s) , Start Date: 06/09/16 16:13:00 CDT, Pharmacy: [facility] Start Date: 06/09/16 Stop Date: 09/04/16 Status: CompletedSingulair 10 mg oral tablet 1 tab(s), Oral, Daily, # 30 tab(s), 5 Refill(s), Start Date: 06/09/16 16:23:00 CDT, Pharmacy: [facility] Start Date: 06/09/16 Status: OrderedSpiriva 18 mcg inhalation capsule 1 cap(s), Inhale, Daily, use two inhalations of one capsule for each dose, X 30 days, # 30 EA, 2 Refill(s), Start Date: 05/29/16 14:08:00 CDT, Pharmacy: [facility] Start Date: 05/29/16 Stop Date: 08/27/16 Status: CompletedSpiriva 18 mcg inhalation capsule 1 cap(s), Inhale, Daily, use two inhalations of one capsule for each dose, # 30 cap(s), 5 Refill(s), Start Date: 08/27/16 7:35:04 TRANSIT PROOF MACHINE OPERATOR, Pharmacy: [facility] Start Date: 08/27/16 Stop Date: 02/23/17 Status: OrderedSpiriva Respimat 2.5 mcg/inh inhalation aerosol 2 puff(s), Inhale, Daily, # 1 EA, 3 Refill(s), Start Date: 05/29/16 13:05:08 CDT , Pharmacy: [facility], [id number], 06/16/17 Start Date: 05/29/16 Stop Date: 06/09/16 Status: CompletedSpiriva Respimat 2.5 mcg/inh inhalation aerosol 2 puff(s), Inhale, Daily, # 4 gm, 0 Refill(s), Start Date: 04/28/16 16:19:00 CDT , samples given to patient (Rx), [id number], 06/16/17 Start Date: 04/28/16 Stop Date: 05/29/16 Status: CompletedSymbicort 160 mcg-4.5 mcg/inh inhalation aerosol 2 puff(s), Inhale, BID, # 1 EA, 3 Refill(s), Start Date: 03/27/16 13:01:00 CDT, Pharmacy: [facility] Start Date: 03/27/16 Stop Date: 07/25/16 Status: OrderedtraMADol 50 mg oral tablet 1 tab(s), Oral, q4hr, PRN for pain, # 24 tab(s), 0 Refill(s), Start Date: 16:24:00 CDT Start Date: 06/01/14 Stop Date: 09/10/14 Status: CompletedtraMADol 50 mg oral tablet See Instructions, PRN for pain, 1-2 tab(s) Oral q4-6hr interval, # 45 tab(s), 1 Refill(s), Start Date: 11/06/14 10:10:50 TRANSIT PROOF MACHINE OPERATOR, 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) Start Date: 11/06/14 Stop Date: 11/12/14 Status: CompletedtraMADol 50 mg oral tablet 1 tab(s), Oral, q12hr, PRN pain severe 8-10, # 30 tab(s), 0 Refill(s), Start Date: 06/26/15 13:56:00 CDT, Pharmacy: [facility] Start Date: 06/26/15 Stop Date: 07/17/15 Status: CompletedtraMADol 50 mg oral tablet 1 tab(s), Oral, q6hr interval, PRN for pain, # 60 tab(s), 0 Refill(s), Start Date: 09/10/14 14:35:17 TRANSIT PROOF MACHINE OPERATOR, 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) Start Date: 09/10/14 Stop Date: 10/23/14 Status: CompletedtraMADol 50 mg oral tablet 1 tab(s), Oral, q4hr, PRN for pain, # 40 tab(s), 0 Refill(s), Start Date: 13:05:00 TRANSIT PROOF MACHINE OPERATOR, Pharmacy: [facility] Start Date: 08/26/15 Stop Date: 09/25/15 Status: CompletedtraMADol 50 mg oral tablet See Instructions, PRN for pain, 1-2 tab(s) Oral q4-6hr interval, # 45 tab(s), 1 Refill(s), Start Date: 10/23/14 10:48:21 TRANSIT PROOF MACHINE OPERATOR, 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) Start Date: 10/23/14 Stop Date: 11/06/14 Status: CompletedtraMADol 50 mg oral tablet 1 tab(s), Oral, q12hr, PRN for pain, # 30 tab(s), 0 Refill(s), Start Date: 12/05 10:05:00 TRANSIT PROOF MACHINE OPERATOR, Pharmacy: [facility] Start Date: 12/05/14 Stop Date: 12/13/14 Status: CompletedtraMADol 50 mg oral tablet See Instructions, 1-2 tab(s) mg Oral q4-6hr PRN pain, # 40 tab(s), 0 Refill(s), Start Date: 07/22/15 14:46:00 CDT Start Date: 07/22/15 Stop Date: 09/25/15 Status: CompletedtraMADol 50 mg oral tablet See Instructions, PRN for pain, 1-2 tab(s) Oral q4-6hr interval, # 45 tab(s), 0 Refill(s), Start Date: 11/12/14 14:53:03 TRANSIT PROOF MACHINE OPERATOR, 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) Start Date: 11/12/14 Stop Date: 05/20/15 Status: CompletedtraMADol 50 mg oral tablet 1 tab(s), Oral, q12hr, PRN for pain, # 30 tab(s), 0 Refill(s), Start Date: 12/13 14:43:11 TRANSIT PROOF MACHINE OPERATOR, Pharmacy: [facility] Start Date: 12/13/14 Stop Date: 05/20/15 Status: CompletedTylenol with Codeine #3 oral tablet 2 tab(s), Oral, q6hr, # 16 tab(s), 0 Refill(s) Start Date: 03/13/14 Stop Date: 03/15/14 Status: CompletedValium 5 mg oral tablet 1 tab(s), Oral, QID, PRN for anxiety, X 7 days, # 28 tab(s), 0 Refill(s), Start Date: 10/13/16 17:12:00 [employer] M[employer]INE OPERATOR Start Date: 10/13/16 Stop Date: 10/20/16 Status: Completedvenlafaxine 25 mg, Oral, BID, 0 Refill(s) Start Date: 06/01/14 Stop Date: 07/27/16 Status: Completedvenlafaxine 25 mg oral tablet 1 tab(s), Oral, BID, Start Date: 07/27/16 15:50:00 CDT Start Date: 07/27/16 Stop Date: 10/13/16 Status: Completedvenlafaxine 25 mg oral tablet 1 tab(s), Oral, TID, # 90 tab(s), 0 Refill(s), Start Date: 10/13/16 15:46:00 [employer] M[employer]INE OPERATOR Start Date: 10/13/16 Status: OrderedVentolin HFA 90 mcg/inh inhalation aerosol 2 puff(s), Inhale, q4hr, PRN for wheezing, # 1 EA, 3 Refill(s), Start Date: 16:07:00 CDT, Pharmacy: [facility] Start Date: 06/09/16 Status: OrderedVentolin HFA [...] Refill(s), Start Date: 05/20/15 8:25:00 CDT, Pharmacy: [facility] Start Date: 05/20/15 Stop Date: 07/17/15 Status: CompletedZithromax Z-Carmelo 250 mg oral tablet 1 packet(s), Oral, Per Package Label, as directed on package labeling, # 6 tab(s ), 0 Refill(s), Start Date: 04/17/16 17:02:00 CDT Start Date: 04/17/16 Stop Date: 04/28/16 Status: CompletedZofran 4 mg oral tablet 1 tab(s), Oral, TID, PRN nausea/vomiting, # 10 tab(s), 0 Refill(s) Start Date: 06/01/14 Stop Date: 07/17/15 Status: Completed Results Patient Viewable Results Most recent to oldest [Reference Range]: 1 Estimated Creatinine Clearance 125.11 mL/min (10/31/16 3:47 PM) Immunizations Given and Recorded Vaccine Date Status Refusal Reason influenza virus vaccine, inactivated 09/04/16 Recorded Procedures Procedure Date Related Diagnosis Body Site Arthroscopy Knee (Left)1 09/16/16 Colonoscopy2 08/21/16 Esophagogastroduodenoscopy3 08/21/16 Extraction4 Procedure on bone of ankle Procedure on knee - left - tendon repair Tubal ligation 1auto-populated from documented surgical [id number] from documented surgical [id number] from documented surgical [id number] Social History No data available for this section Assessment and Plan No data available for this section
--- OUTSIDE RECORDS SUMMARY | 2016-12-30 16:37 | XMS REPORT | Summary of Care ---
:1960 Author Organization [facility] Address [address] [place] [id number] Care Team Providers Name Role Phone Gabrielle Smallwood Primary Care Physician Encounter Date(s): 12/01/16 - 12/01/16 [facility] [address] [place] [id number] [facility] Discharge Diagnosis: Acute bronchitis Discharge Disposition: Discharged to Home or Self Care Attending Physician: ANGUS Mills Admitting Physician: ANGUS Mills Vital Signs Most recent to oldest 1 2 3 [Reference Range]: Temperature Temporal Artery 36.3 DegC 35.8 DegC [36.0-38.0 DegC] (12/01/16 3:30 PM) *LOW* (12/01/16 1:32 PM) Heart Rate Monitored [60-100 105 bpm 92 bpm 112 bpm bpm] *HI* (12/01/16 2:08 PM) *HI* (12/01/16 3:30 PM) (12/01/16 1:32 PM) Respiratory Rate [12-20 br/min] 20 br/min 20 br/min 20 br/min (12/01/16 3:30 PM) (12/01/16 2:08 PM) (12/01/16 1:32 PM) SpO2 [90-100 %] 94 % 99 % (12/01/16 3:30 PM) (12/01/16 1:32 PM) Blood Pressure [90-130/60-90 115/73mmHg 145/99mmHg mmHg] (12/01/16 3:30 PM) *HI* (12/01/16 1:32 PM) Most recent to oldest [Reference Range]: 1 2 3 Weight Estimated 137.27 kg (12/01/16 1:32 PM) Weight Dosing 137.27 kg1 (12/01/16 1:37 PM) 1Result Comment: This result was because the dosing weight was either not entered or it is>30 days old. This result is based off: Weight Estimated December 01, 2016 13:32:00 [employer] by Delmy Mullen RN Problem List Condition Effective Dates Status [...] mL, 2 Refill(s), Start Date: 10/06/16 14:00:04 [employer], Pharmacy: [facility] Start Date: 10/06/16 Stop Date: 01/04/17 Status: Orderedalbuterol 2.5 mg/3 mL (0.083%) inhalation solution 3 mL, Inhale, q6hr, X 30 days, # 25 EA, 0 Refill(s), Start Date: 06/09/16 16:07: 01 CDT, [facility] Start Date: 06/09/16 Stop Date: 10/06/16 Status: Completedalbuterol 2.5 mg/3 mL (0.083%) inhalation solution 3 mL, Inhale, q6hr, # 25 EA, 0 Refill(s), Start Date: 12/16/15 20:03:00 [employer] Start Date: 12/16/15 Stop Date: 06/09/16 Status: Discontinuedalbuterol HFA puff(s), Inhale, QID, 0 Refill(s), Start Date: 09/25/15 13:27:00 [employer] Start Date: 09/25/15 Stop Date: 03/10/16 Status: Completedamitriptyline 10 mg oral tablet 1 tab(s), Oral, HS, 0 Refill(s), Start Date: 07/26/14 8:18:00 CDT Start Date: 07/26/14 Stop Date: 09/21/16 Status: CompletedAugmentin 875 mg-125 mg oral tablet 875 mg, Oral, q12hr interval, # 20 tab(s), 0 Refill(s), Start Date: 07/20/16 17: 32:00 CDT, Pharmacy: [facility] Start Date: 07/20/16 Stop Date: 07/30/16 Status: DiscontinuedAzithromycin 5 Day Dose Pack 250 mg oral tablet 1 packet(s), Oral, Per Package Label, as directed on package labeling, X 5 days , # 6 tab(s), 0 Refill(s), Start Date: 12/01/16 15:05:00 [employer] Special Instructions: as directed on package labeling Start Date: 12/01/16 Stop Date: 12/06/16 Status: OrderedbusPIRone 10 mg oral tablet 1 tab(s), Oral, TID, # 90 tab(s), 0 Refill(s), Start Date: 03/10/16 13:27:00 CDT Start Date: 03/10/16 Status: Orderedcephalexin 500 mg oral capsule 1 cap(s), Oral, QID, # 40 cap(s), 0 Refill(s), Start Date: 09/21/16 15:32:00 [employer] , Pharmacy: [facility] Start Date: 09/21/16 Stop Date: 10/13/16 Status: Completedclindamycin 300 mg oral capsule 1 cap(s), Oral, q6hr, # 28 cap(s), 0 Refill(s), Start Date: 12/17/14 14:47:00 [employer] Start Date: 12/17/14 Stop Date: 02/25/15 Status: [...] Refill(s), Start Date: 04/28/16 16:03:00 CDT, Pharmacy: [facility] Start Date: 04/28/16 Stop Date: 06/09/16 Status: Completeddiclofenac 1% topical gel 1 maxwell, Topical, QID, # 100 gm, 0 Refill(s), Start Date: 06/27/15 10:56:00 CDT, Pharmacy: [facility] Start Date: 06/27/15 Stop Date: 03/10/16 Status: CompletedDilaudid 2 mg oral tablet 1 tab(s), Oral, q8hr interval, PRN for pain, # 12 tab(s), 0 Refill(s), Start Date: 10/22/16 19:09:00 [employer] Start Date: 10/22/16 Stop Date: 10/31/16 Status: CompletedDilaudid 2 mg oral tablet 1 tab(s), Oral, q4hr, PRN for pain, # 12 tab(s), 0 Refill(s), Start Date: 16:54:00 [employer] Start Date: 10/31/16 Stop Date: 12/01/16 Status: CompletedDME - Nebulizer 1 EA, NEB, 12/16/15, Criteria in Order Comments Met?, # 1 EA, 0 Refill(s), 20:03:00 [employer], Supply Start Date: 12/16/15 Status: OrderedFlexeril 10 [...] tab(s), 0 Refill(s), Start Date: 11/26/14 14:42:00 [employer] Start Date: 11/26/14 Stop Date: 11/29/14 Status: [...] 0 Refill(s) , Start Date: 10/22/16 20:47:00 [employer] Start Date: 10/22/16 Stop Date: 10/27/16 Status: Completedhydrocodone-acetaminophen 5mg-325mg oral tablet 2 tab(s), Oral, q4hr, PRN for pain, # 20 tab(s), 0 Refill(s), Start Date: 17:11:00 [employer] Start Date: 10/31/16 Stop Date: 11/03/16 Status: Discontinuedibuprofen 800 mg oral tablet 1 tab(s), Oral, TID, PRN for pain, # 30 tab(s), 0 Refill(s), Start Date: 19:39:00 CDT Start Date: 03/13/14 Stop Date: 09/10/14 Status: Completedibuprofen 800 mg oral tablet 1 tab(s), Oral, TID, # 30 tab(s), 0 Refill(s), Start Date: 09/25/15 13:32:00 [employer] , Pharmacy: [facility] Start Date: 09/25/15 Stop Date: 03/10/16 Status: Completedibuprofen 800 mg oral tablet 1 tab(s), Oral, q6hr interval, PRN for pain, # 60 tab(s), 0 Refill(s), Start Date: 09/10/14 14:35:47 [employer], 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) Start Date: 09/10/14 Stop Date: 10/08/14 Status: Completedibuprofen 800 mg oral tablet 1 tab(s), Oral, q6hr interval, PRN for pain, # 30 tab(s), 0 Refill(s), Start Date: 10/08/14 11:29:36 [employer], Pharmacy: [facility] [id number] Start Date: 10/08/14 Stop Date: 10/29/14 Status: Completedibuprofen 800 mg oral tablet 1 tab(s), Oral, TID, PRN for pain, # 30 tab(s), 0 Refill(s), Start Date: 10:05:00 [employer], Pharmacy: [facility] Start Date: 12/05/14 Stop Date: 03/10/16 Status: Completedibuprofen 800 mg oral tablet 1 tab(s), Oral, TID, # 30 tab(s), 0 Refill(s), Start Date: 08/26/16 8:54:00 [employer] , Pharmacy: [facility] Start Date: 08/26/16 Stop Date: 12/01/16 Status: Completedindomethacin 50 mg oral capsule 1 cap(s), Oral, TID, PRN for pain, X 10 days, # 30 cap(s), 0 Refill(s), Start Date: 10/13/16 17:12:00 [employer] Start Date: 10/13/16 Stop Date: 10/23/16 Status: CompletedLevaquin 750 mg oral tablet 1 tab(s), Oral, q24hr interval, # 7 tab(s), 0 Refill(s), Start Date: 04/28/16 15 :56:00 CDT, Pharmacy: [facility] Start Date: 04/28/16 Stop Date: 06/09/16 Status: Completedlisinopril 10 mg oral tablet 1 tab(s), Oral, Daily, # 30 tab(s), 5 Refill(s), Start Date: 10/22/16 16:07:58 [employer], Pharmacy: [facility] Start Date: 10/22/16 Status: Orderedlisinopril 10 mg oral tablet 1 tab(s), Oral, Daily, # 30 tab(s), 5 Refill(s), Start Date: 04/28/16 15:59:00 CDT, Pharmacy: [facility] Start Date: 04/28/16 Stop Date: 10/22/16 Status: CompletedMedrol Dosepak 4 mg oral tablet 1 packet(s), Oral, Per Package Label, as directed on package labeling, X 6 days , # 21 tab(s), 0 Refill(s), Start Date: 10/13/16 17:12:00 [employer] Special Instructions: as directed on package labeling [...] tab(s), 0 Refill(s), Start Date: 09/16/16 12:26:21 [employer], Pharmacy: [facility] Special Instructions: 1-2 po Q 4-6 hrs prn pain Start Date: 09/16/16 Stop Date: 09/23/16 Status: CompletedNorco 5 mg-325 mg oral tablet 2 tab(s), Oral, q6hr, PRN for pain, # 30 tab(s), 0 Refill(s), Start Date: 10:14:00 [employer], Pharmacy: [facility] [id number] Start Date: 10/01/14 Stop Date: 10/08/14 Status: CompletedNorco 5 mg-325 mg oral tablet 1 tab(s), Oral, q4hr, PRN for pain, # 10 tab(s), 0 Refill(s), Start Date: 22:44:00 [employer] Start Date: 08/20/15 Stop Date: 08/24/15 Status: CompletedNorco 5 mg-325 mg oral tablet See Instructions, 1 po Q 4-6 hrs prn pain, # 30 tab(s), 0 Refill(s), Start Date : 09/08/16 10:59:35 [employer], Pharmacy: [facility] Special Instructions: 1 po Q 4-6 hrs prn pain Start Date: 09/08/16 Stop Date: 09/14/16 Status: CompletedNorco 5 mg-325 mg oral tablet 1 tab(s), Oral, q4hr, # 30 tab(s), 0 Refill(s), Start Date: 06/05/15 11:12:00 CDT, Pharmacy: [facility] Start Date: 06/05/15 Stop Date: 06/26/15 Status: DiscontinuedNorco 5 mg-325 mg oral tablet 1 tab(s), Oral, q6hr, # 40 tab(s), 0 Refill(s), Start Date: 08/17/16 12:42:00 CDT, Pharmacy: [facility] Start Date: 08/17/16 Stop Date: 08/26/16 [...] , 0 Refill(s), Start Date: 09/23/16 14:55:00 [employer], Pharmacy: [facility] Special Instructions: Use sparingly Start Date: 09/23/16 Stop Date: 10/01/16 Status: DiscontinuedNorco 5 mg-325 mg oral tablet See Instructions, 1-2 tab(s) Oral q6hr PRN pain, # 30 tab(s), 0 Refill(s), Start Date: 08/27/14 10:45:01 [employer], other reason (Rx) Special Instructions: 1-2 tab(s) Oral q6hr PRN pain Start Date: 08/27/14 Stop Date: 09/03/14 Status: CompletedNorco 5 mg-325 mg oral tablet 1 tab(s), Oral, q4hr, PRN for pain, X 3 days, # 15 tab(s), 0 Refill(s), Start Date: 09/04/16 17:08:00 [employer] Start Date: 09/04/16 Stop Date: 09/07/16 Status: CompletedNorco 5 mg-325 mg oral tablet See Instructions, 1 po Q 4-6 hrs prn pain, # 12 tab(s), 0 Refill(s), Start Date : 09/14/16 11:50:00 [employer], Pharmacy: [facility] Special Instructions: 1 po Q 4-6 hrs prn pain Start Date: 09/14/16 Stop Date: 09/16/16 Status: CompletedNorco 5 mg-325 mg oral tablet 1 tab(s), Oral, q6hr, # 40 tab(s), 0 Refill(s), Start Date: 08/07/16 11:55:00 CDT, Pharmacy: [facility] Start Date: 08/07/16 Stop Date: 08/17/16 Status: CompletedNorco 5 mg-325 mg oral tablet 1 tab(s), Oral, q4hr, # 30 tab(s), 0 Refill(s), Start Date: 07/17/15 10:26:00 CDT, Pharmacy: [facility] Start Date: 07/17/15 Stop Date: 09/25/15 Status: CompletedNorco 5 mg-325 mg oral tablet 1 tab(s), Oral, q6hr, PRN for pain, # 30 tab(s), 0 Refill(s), Start Date: 11:02:00 [employer], Pharmacy: [facility] Start Date: 10/29/14 Stop Date: 12/05/14 Status: CompletedNorco 5 mg-325 mg oral tablet See Instructions, 1-2tab(s) Oral q4-6hr prn pain, # 50 tab(s), 0 Refill(s), Start Date: 05/13/15 9:54:50 CDT, Pharmacy: [facility] Special Instructions: 1-2tab(s) Oral q4-6hr prn pain Start Date: 05/13/15 Stop Date: 05/20/15 Status: CompletedNorco 5 mg-325 mg oral tablet 1 tab(s), Oral, q6hr interval, not to exceed 8 tablets/day, # 40 tab(s), 0 Refill(s), Start Date: 10/01/16 11:17:00 [employer], Pharmacy: [facility] Special Instructions: not to exceed 8 tablets/day Start Date: 10/01/16 Stop Date: 10/13/16 Status: CompletedNorco 5 mg-325 mg oral tablet 2 tab(s), Oral, q6hr, PRN for pain, # 45 tab(s), 0 Refill(s), Start Date: 11:52:05 [employer], other reason (Rx) Start Date: 10/15/14 Stop Date: 10/29/14 Status: CompletedNorco 5 mg-325 mg oral tablet 1 tab(s), Oral, q6hr interval, PRN for pain, # 30 tab(s), 0 Refill(s), Start Date: 06/17/15 10:34:42 CDT, Pharmacy: [facility] Start Date: 06/17/15 Stop Date: 06/26/15 Status: DiscontinuedNorco 5 mg-325 mg oral tablet 1 tab(s), Oral, q6hr interval, # 30 tab(s), 0 Refill(s), Start Date: 10/15/16 16 :23:00 [employer], Pharmacy: [facility] Start Date: 10/15/16 Stop Date: 10/31/16 Status: CompletedNorco 5 mg-325 mg oral tablet 1 tab(s), Oral, q6hr, # 40 tab(s), 0 Refill(s), Start Date: 07/30/16 10:06:00 CDT, Pharmacy: [facility] Start Date: 07/30/16 Stop Date: 08/07/16 Status: CompletedNorco 5 mg-325 mg oral tablet 1 tab(s), Oral, q6hr, PRN for pain, # 30 tab(s), 0 Refill(s), Start Date: 11:00:00 [employer], Pharmacy: [facility] [id number] Start Date: 10/29/14 Stop Date: 10/29/14 Status: DiscontinuedNorco 5 mg-325 mg oral tablet 2 tab(s), Oral, q6hr, PRN for pain, # 30 tab(s), 0 Refill(s), Start Date: 11:30:02 [employer], other reason (Rx) Start Date: 10/08/14 Stop Date: 10/15/14 Status: CompletedNorco 5 mg-325 mg oral tablet See Instructions, 1-2 tab(s) Oral q6hr PRN pain, # 40 tab(s), 0 Refill(s), Start Date: 09/03/14 15:24:06 [employer], other reason (Rx) Special Instructions: 1-2 tab(s) Oral q6hr PRN pain Start Date: 09/03/14 Stop Date: 10/29/14 Status: CompletedNorco 5 mg-325 mg oral tablet See Instructions, 1-2 tab(s) Oral q4-6hr PRN pain, # 30 tab(s), 0 Refill(s), Start Date: 08/20/14 15:25:27 [employer], other reason (Rx) Special Instructions: 1-2 tab(s) Oral q4-6hr PRN pain Start Date: 08/20/14 Stop Date: 08/27/14 Status: CompletedNorco 5 mg-325 mg oral tablet 1 tab(s), Oral, q6hr, # 30 tab(s), 0 Refill(s), Start Date: 08/26/16 8:54:54 [employer] , Pharmacy: [facility] Start Date: 08/26/16 Stop Date: 09/08/16 [...] Refill(s), Start Date: 11:30:00 CDT, Pharmacy: [facility] Start Date: 06/10/15 Stop Date: 06/17/15 Status: Completedomeprazole 40 mg oral delayed release capsule 1 cap(s), Oral, Daily, 0 Refill(s), Start Date: 06/09/16 15:12:00 CDT Start Date: 06/09/16 Stop Date: 08/17/16 Status: Discontinuedomeprazole 40 mg oral delayed release capsule 1 cap(s), Oral, Daily, # 30 cap(s), 4 Refill(s), Start Date: 03/10/16 14:24:00 CDT, Pharmacy: [facility] Start Date: 03/10/16 Stop Date: 04/28/16 Status: Discontinuedomeprazole 40 mg oral delayed release capsule 1 cap(s), Oral, Daily, # 30 cap(s), 3 Refill(s), Start Date: 08/17/16 13:57:00 CDT, Pharmacy: [facility] Start Date: 08/17/16 Stop Date: 12/15/16 Status: Orderedorphenadrine 100 mg oral tablet, extended release 1 tab(s), Oral, BID, # 10 tab(s), 0 Refill(s), Start Date: 07/10/15 19:44:00 CDT Start Date: 07/10/15 Stop Date: 03/10/16 Status: Completedpenicillin V potassium 500 mg oral tablet 1 tab(s), Oral, TID, X 7 days, # 21 tab(s), 0 Refill(s), Start Date: 11/26/14 14 :42:00 [employer] Start Date: 11/26/14 Stop Date: 12/03/14 Status: Completedpenicillin V potassium 500 mg oral tablet 1 tab(s), Oral, TID, # 30 tab(s), 0 Refill(s), Start Date: 01/13/16 19:53:00 CDT Start Date: 01/13/16 Stop Date: 03/10/16 Status: CompletedPercocet 5/325 oral tablet 1 tab(s), Oral, q4hr, PRN for pain, Do not work or drive with this medication, # 6 tab(s), 0 Refill(s), Start Date: 12/17/14 14:47:00 [employer] Special Instructions: Do not work or drive [...] Date: 05/20/15 8:25:00 CDT , Pharmacy: [facility] Start Date: 05/20/15 Stop Date: 05/29/15 Status: CompletedPercocet 5/325 oral tablet 2 tab(s), Oral, q4hr, # 40 tab(s), 0 Refill(s), Start Date: 05/29/15 14:40:46 CDT, Pharmacy: [facility] Start Date: 05/29/15 Stop Date: 06/05/15 [...] ), Start Date: 07/17/16 14:03:00 CDT, Pharmacy: [facility] Special Instructions: may increase in 1 week to two tabs. Start Date: 07/17/16 Stop Date: 09/04/16 Status: CompletedpredniSONE 10 mg oral tablet See Instructions, 40mg daily x 3d, 30mg daily x 3d, 20mg daily x 3d, 10mg daily x 3d, # 30 tab(s), 0 Refill(s), Start Date: 07/20/16 17:33:00 CDT, Pharmacy: [facility] Special Instructions: 40mg daily x 3d, [...] Refill(s), Start Date: 04/28/16 15:56:00 CDT, Pharmacy: [facility] Special Instructions: 40 mg qd x 3d, 30 mg qd x 3d, 20 mg qd x 3d, 10 mg qd x 3d. with food Start Date: 04/28/16 Stop Date: 06/09/16 Status: CompletedpredniSONE 20 mg oral tablet 2 tab(s), Oral, Daily, X 5 days, # 10 tab(s), 0 Refill(s), Start Date: 12/01/16 15:05:00 [employer] Start Date: 12/01/16 Stop Date: 12/06/16 Status: [...] Refill(s), Start Date: 06/29/16 10:57:00 CDT, Pharmacy: [facility] Special Instructions: Oral ONETIME Start Date: 06/29/16 Stop Date: 07/27/16 Status: CompletedRequip 0.25 mg oral tablet 1 tab(s), Oral, Daily, take one at hs about 30 minutes prior to hs, may increase to 2 po at night after 3-5 days. with food, # 45 tab(s), 3 Refill(s) , Start Date: 06/09/16 16:13:00 CDT, [facility] Special Instructions: take one at hs about 30 minutes prior to hs, may increase to 2 po at night after 3-5 days. with food Start Date: 06/09/16 Stop Date: 09/04/16 Status: CompletedSingulair 10 mg oral tablet 1 tab(s), Oral, Daily, # 30 tab(s), 5 Refill(s), Start Date: 06/09/16 16:23:00 CDT, Pharmacy: [facility] Start Date: 06/09/16 Status: OrderedSpiriva 18 mcg inhalation capsule 1 cap(s), Inhale, Daily, use two inhalations of one capsule for each dose, X 30 days, # 30 EA, 2 Refill(s), Start Date: 05/29/16 14:08:00 CDT, Pharmacy: [facility] Special Instructions: use two inhalations of one capsule for each dose Start Date: 05/29/16 Stop Date: 08/27/16 Status: CompletedSpiriva 18 mcg inhalation capsule 1 cap(s), Inhale, Daily, use two inhalations of one capsule for each dose, # 30 cap(s), 5 Refill(s), Start Date: 08/27/16 7:35:04 [employer], Pharmacy: [facility] Special Instructions: use two inhalations of one capsule for each dose Start Date: 08/27/16 Stop Date: 02/23/17 Status: OrderedSpiriva Respimat 2.5 mcg/inh inhalation aerosol 2 puff(s), Inhale, Daily, # 1 EA, 3 Refill(s), Start Date: 05/29/16 13:05:08 CDT , Pharmacy: [facility], [id number], 06/16/17 Start Date: 05/29/16 Stop Date: 06/09/16 Status: CompletedSpiriva Respimat 2.5 mcg/inh inhalation aerosol 2 puff(s), Inhale, Daily, # 4 gm, 0 Refill(s), Start Date: 04/28/16 16:19:00 CDT , samples given to patient (Rx), [id number], 06/16/17 Start Date: 04/28/16 Stop Date: 05/29/16 Status: CompletedSymbicort 160 mcg-4.5 mcg/inh inhalation aerosol 2 puff(s), Inhale, BID, # 1 EA, 3 Refill(s), Start Date: 03/27/16 13:01:00 CDT, Pharmacy: [facility] Start Date: 03/27/16 Stop Date: 07/25/16 Status: OrderedtraMADol 50 mg oral tablet 1 tab(s), Oral, q4hr, PRN for pain, # 24 tab(s), 0 Refill(s), Start Date: 16:24:00 CDT Start Date: 06/01/14 Stop Date: 09/10/14 Status: CompletedtraMADol 50 mg oral tablet See Instructions, PRN for pain, 1-2 tab(s) Oral q4-6hr interval, # 45 tab(s), 1 Refill(s), Start Date: 11/06/14 10:10:50 [employer], 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) Special Instructions: 1-2 tab(s) Oral q4-6hr interval Start Date: 11/06/14 Stop Date: 11/12/14 Status: CompletedtraMADol 50 mg oral tablet 1 tab(s), Oral, q12hr, PRN pain severe 8-10, # 30 tab(s), 0 Refill(s), Start Date: 06/26/15 13:56:00 CDT, Pharmacy: [facility] Start Date: 06/26/15 Stop Date: 07/17/15 Status: CompletedtraMADol 50 mg oral tablet 1 tab(s), Oral, q6hr interval, PRN for pain, # 60 tab(s), 0 Refill(s), Start Date: 09/10/14 14:35:17 [employer], 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) Start Date: 09/10/14 Stop Date: 10/23/14 Status: CompletedtraMADol 50 mg oral tablet 1 tab(s), Oral, q4hr, PRN for pain, # 40 tab(s), 0 Refill(s), Start Date: 13:05:00 [employer], Pharmacy: [facility] Start Date: 08/26/15 Stop Date: 09/25/15 Status: CompletedtraMADol 50 mg oral tablet See Instructions, PRN for pain, 1-2 tab(s) Oral q4-6hr interval, # 45 tab(s), 1 Refill(s), Start Date: 10/23/14 10:48:21 [employer], 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) Special Instructions: 1-2 tab(s) Oral q4-6hr interval Start Date: 10/23/14 Stop Date: 11/06/14 Status: CompletedtraMADol 50 mg oral tablet 1 tab(s), Oral, q12hr, PRN for pain, # 30 tab(s), 0 Refill(s), Start Date: 12/05 10:05:00 [employer], Pharmacy: [facility] Start Date: 12/05/14 Stop Date: 12/13/14 [...] tab(s), 0 Refill(s), Start Date: 11/12/14 14:53:03 [employer], 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) Special Instructions: 1-2 tab(s) Oral q4-6hr interval Start Date: 11/12/14 Stop Date: 05/20/15 Status: CompletedtraMADol 50 mg oral tablet 1 tab(s), Oral, q12hr, PRN for pain, # 30 tab(s), 0 Refill(s), Start Date: 12/13 14:43:11 [employer], Pharmacy: [facility] Start Date: 12/13/14 Stop Date: 05/20/15 Status: CompletedTylenol with Codeine #3 oral tablet 2 tab(s), Oral, q6hr, # 16 tab(s), 0 Refill(s) Start Date: 03/13/14 Stop Date: 03/15/14 Status: CompletedValium 5 mg oral tablet 1 tab(s), Oral, QID, PRN for anxiety, X 7 days, # 28 tab(s), 0 Refill(s), Start Date: 10/13/16 17:12:00 [employer] Start Date: 10/13/16 Stop Date: 10/20/16 Status: Completedvenlafaxine 25 mg, Oral, BID, 0 Refill(s) Start Date: 06/01/14 Stop Date: 07/27/16 Status: Completedvenlafaxine 25 mg oral tablet 1 tab(s), Oral, BID, Start Date: 07/27/16 15:50:00 CDT Start Date: 07/27/16 Stop Date: 10/13/16 Status: Completedvenlafaxine 25 mg oral tablet 1 tab(s), Oral, TID, # 90 tab(s), 0 Refill(s), Start Date: 10/13/16 15:46:00 [employer] Start Date: 10/13/16 Status: OrderedVentolin HFA 90 mcg/inh inhalation aerosol 2 puff(s), Inhale, q4hr, PRN for wheezing, # 1 EA, 3 Refill(s), Start Date: 16:07:00 CDT, Pharmacy: [facility] Start Date: 06/09/16 Status: OrderedVentolin HFA [...] Start Date: 05/20/15 8:25:00 CDT, Pharmacy: [facility] Start Date: 05/20/15 Stop Date: 07/17/15 [...] Range]: 1 Estimated Creatinine Clearance 125.11 mL/min (12/01/16 1:37 PM) Immunizations Vaccine Date Refusal Reason influenza virus vaccine, inactivated 09/04/16 Procedures Procedure Date Related Diagnosis Body Site Arthroscopy Knee (Left)1 09/16/16 Colonoscopy2 08/21/16 Esophagogastroduodenoscopy3 08/21/16 Extraction4 Procedure on bone of ankle Procedure on knee - left - tendon repair Tubal ligation 1auto-populated from documented surgical [id number] from documented surgical [id number] from documented surgical [id number] Social History No data available for this section Assessment and Plan No data available for this section
--- OUTSIDE RECORDS SUMMARY | 2016-12-30 16:37 | XMS REPORT | Summary of Care ---
:1960 Author Organization [facility] Address [facility] [place] [address]- Care Team Providers Name Role Phone Gabrielle Smallwood Luisa Primary Care Physician Encounter Date(s): 03/18/16 - 03/18/16 [facility] [address] [place] [id number] Final: Dyspnea, unspecified Final: Other fatigue Final: Tobacco use Discharge Disposition: Discharged to Home or Self [...] EA, 0 Refill(s), Start Date: 12/16/15 20:03:00 APPAREL RENTAL CLERK Start Date: 12/16/15 Stop Date: 01/15/16 Status: Orderedalbuterol HFA puff(s), Inhale, QID, 0 Refill(s), Start Date: 09/25/15 13:27:00 APPAREL RENTAL CLERK Start Date: 09/25/15 Stop Date: 03/10/16 Status: [...] cap(s), 0 Refill(s), Start Date: 12/17/14 14:47:00 APPAREL RENTAL CLERK Start Date: 12/17/14 Stop Date: 02/25/15 Status: Completedcyclobenzaprine 10 mg, Oral, BID, 0 Refill(s) Start Date: 06/01/14 Status: Ordereddiclofenac 1% topical gel 1 maxwell, Topical, QID, # 100 gm, 0 Refill(s), Start Date: 06/27/15 10:56:00 CDT, Pharmacy: [facility] Start Date: 06/27/15 Stop Date: 03/10/16 Status: CompletedDME - Nebulizer 1 EA, NEB, 12/16/15, Criteria in Order Comments Met?, # 1 EA, 0 Refill(s), 20:03:00 APPAREL RENTAL CLERK, Supply Start Date: 12/16/15 Status: OrderedHYDROcodone-acetaminophen 5 mg-325 mg oral tablet 1 tab(s), Oral, q6hr, X 3 days, # 12 tab(s), 0 Refill(s), Start Date: 02/25/15 13:13:00 CDT Start Date: 02/25/15 Stop Date: 02/28/15 Status: CompletedHYDROcodone-acetaminophen 5 mg-325 mg oral tablet 2 tab(s), Oral, q6hr, X 3 days, # 15 tab(s), 0 Refill(s), Start Date: 11/26/14 14:42:00 APPAREL RENTAL CLERK Start Date: 11/26/14 Stop Date: 11/29/14 Status: [...] tab(s), 0 Refill(s), Start Date: 09/25/15 13:32:00 APPAREL RENTAL CLERK , Pharmacy: [facility] Start Date: 09/25/15 Stop Date: 03/10/16 Status: Completedibuprofen 800 mg oral tablet 1 tab(s), Oral, q6hr interval, PRN for pain, # 60 tab(s), 0 Refill(s), Start Date: 09/10/14 14:35:47 APPAREL RENTAL CLERK, 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) Start Date: 09/10/14 Stop Date: 10/08/14 Status: Completedibuprofen 800 mg oral tablet 1 tab(s), Oral, q6hr interval, PRN for pain, # 30 tab(s), 0 Refill(s), Start Date: 10/08/14 11:29:36 APPAREL RENTAL CLERK, Pharmacy: [facility] [id number] Start Date: 10/08/14 Stop Date: 10/29/14 Status: Completedibuprofen 800 mg oral tablet 1 tab(s), Oral, TID, PRN for pain, # 30 tab(s), 0 Refill(s), Start Date: 10:05:00 APPAREL RENTAL CLERK, Pharmacy: [facility] Start Date: 12/05/14 Stop Date: [...] 30 tab(s), 0 Refill(s), Start Date: 10:14:00 APPAREL RENTAL CLERK, Pharmacy: [facility] [id number] Start Date: 10/01/14 Stop Date: 10/08/14 Status: CompletedNorco 5 mg-325 mg oral tablet 1 tab(s), Oral, q4hr, PRN for pain, # 10 tab(s), 0 Refill(s), Start Date: 22:44:00 APPAREL RENTAL CLERK Start Date: 08/20/15 Stop Date: 08/24/15 Status: CompletedNorco 5 mg-325 mg oral tablet 1 tab(s), Oral, q4hr, # 30 tab(s), 0 Refill(s), Start Date: 06/05/15 11:12:00 CDT, Pharmacy: [facility] Start Date: 06/05/15 Stop Date: 06/26/15 Status: [...] tab(s), 0 Refill(s), Start Date: 08/27/14 10:45:01 APPAREL RENTAL CLERK, other reason (Rx) Special Instructions: 1-2 tab(s) Oral q6hr PRN pain Start Date: 08/27/14 Stop Date: 09/03/14 Status: CompletedNorco 5 mg-325 mg oral tablet 1 tab(s), Oral, q4hr, # 30 tab(s), 0 Refill(s), Start Date: 07/17/15 10:26:00 CDT, Pharmacy: [facility] Start Date: 07/17/15 Stop Date: 09/25/15 Status: CompletedNorco 5 mg-325 mg oral tablet 1 tab(s), Oral, q6hr, PRN for pain, # 30 tab(s), 0 Refill(s), Start Date: 11:02:00 APPAREL RENTAL CLERK, Pharmacy: [facility] Start Date: 10/29/14 Stop Date: 12/05/14 Status: CompletedNorco 5 mg-325 mg oral tablet See Instructions, 1-2tab(s) Oral q4-6hr prn pain, # 50 tab(s), 0 Refill(s), Start Date: 05/13/15 9:54:50 CDT, Pharmacy: [facility] Special Instructions: 1-2tab(s) Oral q4-6hr prn pain Start Date: 05/13/15 Stop Date: 05/20/15 Status: CompletedNorco 5 mg-325 mg oral tablet 2 tab(s), Oral, q6hr, PRN for pain, # 45 tab(s), 0 Refill(s), Start Date: 11:52:05 APPAREL RENTAL CLERK, other reason (Rx) Start Date: 10/15/14 Stop Date: 10/29/14 Status: CompletedNorco 5 mg-325 mg oral tablet 1 tab(s), Oral, q6hr interval, PRN for pain, # 30 tab(s), 0 Refill(s), Start Date: 06/17/15 10:34:42 CDT, Pharmacy: [facility] Start Date: 06/17/15 Stop Date: 06/26/15 Status: DiscontinuedNorco 5 mg-325 mg oral tablet 1 tab(s), Oral, q6hr, PRN for pain, # 30 tab(s), 0 Refill(s), Start Date: 11:00:00 APPAREL RENTAL CLERK, [facility] [id number] Start Date: 10/29/14 Stop Date: 10/29/14 Status: DiscontinuedNorco 5 mg-325 mg oral tablet 2 tab(s), Oral, q6hr, PRN for pain, # 30 tab(s), 0 Refill(s), Start Date: 11:30:02 APPAREL RENTAL CLERK, other reason (Rx) Start Date: 10/08/14 Stop Date: 10/15/14 Status: CompletedNorco 5 mg-325 mg oral tablet See Instructions, 1-2 tab(s) Oral q6hr PRN pain, # 40 tab(s), 0 Refill(s), Start Date: 09/03/14 15:24:06 APPAREL RENTAL CLERK, other reason (Rx) Special Instructions: 1-2 tab(s) Oral q6hr PRN pain Start Date: 09/03/14 Stop Date: 10/29/14 Status: CompletedNorco 5 mg-325 mg oral tablet See Instructions, 1-2 tab(s) Oral q4-6hr PRN pain, # 30 tab(s), 0 Refill(s), Start Date: 08/20/14 15:25:27 APPAREL RENTAL CLERK, other reason (Rx) Special Instructions: 1-2 tab(s) [...] 0 Refill(s), Start Date: 11:30:00 CDT, Pharmacy: [facility] Start Date: 06/10/15 Stop Date: 06/17/15 Status: Completedomeprazole 40 mg oral delayed release capsule 1 cap(s), Oral, Daily, # 30 cap(s), 4 Refill(s), Start Date: 03/10/16 14:24:00 CDT, Pharmacy: [facility] Start Date: 03/10/16 Status: Orderedorphenadrine 100 mg oral tablet, extended release 1 tab(s), Oral, BID, # 10 tab(s), 0 Refill(s), Start Date: 07/10/15 19:44:00 CDT Start Date: 07/10/15 Stop Date: 03/10/16 Status: Completedpenicillin V potassium 500 mg oral tablet 1 tab(s), Oral, TID, X 7 days, # 21 tab(s), 0 Refill(s), Start Date: 11/26/14 14 :42:00 APPAREL RENTAL CLERK Start Date: 11/26/14 Stop Date: 12/03/14 Status: Completedpenicillin V potassium 500 mg oral tablet 1 tab(s), Oral, TID, # 30 tab(s), 0 Refill(s), Start Date: 01/13/16 19:53:00 CDT Start Date: 01/13/16 Stop Date: 03/10/16 Status: CompletedPercocet 5/325 oral tablet 1 tab(s), Oral, q4hr, PRN for pain, Do not work or drive with this medication, # 6 tab(s), 0 Refill(s), Start Date: 12/17/14 14:47:00 APPAREL RENTAL CLERK Special Instructions: Do not work or drive with this medication Start Date: 12/17/14 Stop Date: 12/19/14 Status: CompletedPercocet 5/325 oral tablet 2 tab(s), Oral, q4hr, # 60 tab(s), 0 Refill(s), Start Date: 05/20/15 8:25:00 CDT , Pharmacy: [facility] Start Date: 05/20/15 Stop Date: 05/29/15 Status: CompletedPercocet 5/325 oral tablet 2 tab(s), Oral, q4hr, # 40 tab(s), 0 Refill(s), Start Date: 05/29/15 14:40:46 CDT, Pharmacy: [facility] Start Date: 05/29/15 Stop Date: 06/05/15 Status: DiscontinuedPercocet 5/325 oral tablet 1 tab(s), Oral, q6hr interval, X 3 days, # 12 tab(s), 0 Refill(s), Start Date: 05/17/15 14:18:00 CDT Start Date: 05/17/15 Stop Date: 05/20/15 Status: CompletedSymbicort 160 mcg-4.5 mcg/inh inhalation aerosol 2 puff(s), Inhale, BID, # 1 EA, 3 Refill(s), Start Date: 03/27/16 13:01:00 CDT, Pharmacy: [facility] Start Date: 03/27/16 Stop Date: 07/25/16 Status: OrderedtraMADol 50 mg oral tablet 1 tab(s), Oral, q4hr, PRN for pain, # 24 tab(s), 0 Refill(s), Start Date: 16:24:00 CDT Start Date: 06/01/14 Stop Date: 09/10/14 Status: CompletedtraMADol 50 mg oral tablet See Instructions, PRN for pain, 1-2 tab(s) Oral q4-6hr interval, # 45 tab(s), 1 Refill(s), Start Date: 11/06/14 10:10:50 APPAREL RENTAL CLERK, 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) Special Instructions: 1-2 tab(s) Oral q4-6hr interval Start Date: 11/06/14 Stop Date: 11/12/14 Status: CompletedtraMADol 50 mg oral tablet 1 tab(s), Oral, q12hr, PRN pain severe 8-10, # 30 tab(s), 0 Refill(s), Start Date: 06/26/15 13:56:00 CDT, Pharmacy: [facility] Start Date: 06/26/15 Stop Date: 07/17/15 Status: CompletedtraMADol 50 mg oral tablet 1 tab(s), Oral, q6hr interval, PRN for pain, # 60 tab(s), 0 Refill(s), Start Date: 09/10/14 14:35:17 APPAREL RENTAL CLERK, 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) Start Date: 09/10/14 Stop Date: 10/23/14 Status: CompletedtraMADol 50 mg oral tablet 1 tab(s), Oral, q4hr, PRN for pain, # 40 tab(s), 0 Refill(s), Start Date: 13:05:00 APPAREL RENTAL CLERK, Pharmacy: [facility] Start Date: 08/26/15 Stop Date: 09/25/15 Status: CompletedtraMADol 50 mg oral tablet See Instructions, PRN for pain, 1-2 tab(s) Oral q4-6hr interval, # 45 tab(s), 1 Refill(s), Start Date: 10/23/14 10:48:21 APPAREL RENTAL CLERK, 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) Special Instructions: 1-2 tab(s) Oral q4-6hr interval Start Date: 10/23/14 Stop Date: 11/06/14 Status: CompletedtraMADol 50 mg oral tablet 1 tab(s), Oral, q12hr, PRN for pain, # 30 tab(s), 0 Refill(s), Start Date: 12/05 10:05:00 APPAREL RENTAL CLERK, Pharmacy: [facility] Start Date: 12/05/14 Stop Date: [...] tab(s), 0 Refill(s), Start Date: 11/12/14 14:53:03 APPAREL RENTAL CLERK, 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) Special Instructions: 1-2 tab(s) Oral q4-6hr interval Start Date: 11/12/14 Stop Date: 05/20/15 Status: CompletedtraMADol 50 mg oral tablet 1 tab(s), Oral, q12hr, PRN for pain, # 30 tab(s), 0 Refill(s), Start Date: 12/13 14:43:11 APPAREL RENTAL CLERK, Pharmacy: [facility] Start Date: 12/13/14 Stop Date: [...] Refill(s), Start Date: 05/20/15 8:25:00 CDT, Pharmacy: [facility] Start Date: 05/20/15 Stop Date: [...]
[2016-12-30] MEDS ORDERED: HYDROcodone/ACETAMINOPHEN 1 EACH TABLET PO ONE (16:38)
--- NOTE | 2016-12-30 16:38 | ERNOTE ---
Lower Extremity HPI - Narrative Date of Service: 12/30/16 - General Lower Extremities Pain: knee: left Time Seen by Provider: 12/30/16 16:16 Source: patient, RN notes reviewed Exam Limitations: no limitations - Immun/Allergies/Home Medications Immunizations: IMMUNIZATION HX Immunizations Up to Date Yes History of Influenza Vaccine Yes Hx Pneumococcal Vaccination No Allergies/Adverse Reactions: Allergies Allergy/AdvReac Type Severity Reaction Status Date / Time codeine AdvReac Mild Nausea Verified 12/30/16 15:26 gabapentin AdvReac Mild Nausea Verified 12/30/16 15:26 ketorolac tromethamine AdvReac Mild Nausea Verified 12/30/16 15:26 [From Toradol] Home Medications: HOME MEDICATIONS Buspirone HCl 25 mg PO TID 06/20/16 [Last Taken Unknown] Cyclobenzaprine HCl [Flexeril] 10 mg PO DAILY 06/20/16 [Last Taken Unknown] Lisinopril [Zestril] 10 mg PO DAILY 06/20/16 [Last Taken Unknown] Omeprazole [Prilosec] 40 mg PO DAILY 06/20/16 [Last Taken Unknown] Venlafaxine HCl [Effexor Xr] 75 mg PO BID 06/20/16 [Last Taken Unknown] Albuterol Sulfate [Ventolin Hfa] 18 gm IH 12/30/16 [Last Taken Unknown] HYDROcodone/ACETAMINOPHEN [[place] 5-325] 1 - 2 tab PO Q6H PRN #12 tab 12/30/16 [ Last Taken Unknown] Spiriva 12/30/16 [Last Taken Unknown] Symbicort 80-4.5 Mcg Inhaler 12/30/16 [Last Taken Unknown] - History of Present Illness Narrative: 56 y/o female ambulatory to the ED for left knee pain. She reports twisting the knee 2 days ago. She is on meloxicam and has been taking Tylenol without improvement. She had a meniscus repair on the knee in July of last year at [facility]. She also reports swelling and bruising. Date (Duration): 12/28/16 Method of Injury: Reports: twisted Modifying Factors - (Improves): Reports: cold therapy, immobilization Modifying Factors - (Worsens): Reports: movement Associated Symptoms: Denies: unable to bear weight, snapping, popping sensation Other Injuries: Reports: none Subsequent Symptoms: Denies: sensory loss, numbness, motor loss Review of Systems - Review of Systems Constitutional: Present: no symptoms reported EYE: Present: no symptoms reported ENT: Present: no symptoms reported Respiratory: Present: no symptoms reported Cardiology: Absent: edema, claudication Gastrointestinal/Abdominal: Present: no symptoms reported Genitourinary: Present: no symptoms reported Musculoskeletal: Present: joint pain, joint swelling Skin: Present: change in color. Absent: rash, lesions Neurological: Absent: weakness, numbness, tingling Endocrine: Present: no symptoms reported Hematologic/Lymphatic: Present: no symptoms reported Psych: Present: no symptoms reported - Patient's Past Medical History Patient History - Medical: Arthritis, Obesity Patient History - Cardiac/Respiratory: Asthma Patient History - Cancer: No Hx of Cancer Patient History - Surgical Procedures: Tubal Ligation, Other Patient History - Other: None - Social History Living Situations: home Abuse History: No History of abuse Psych History: Hx of Depression Smoking Status: Former smoker Have you smoked in the past 12 months: Yes Do you dip or chew tobacco: No Alcohol Use: none Drug Use: none - Immunizations Immunizations Up to Date: Yes Hx Pneumococcal Vaccination: No History of Influenza Vaccine: Yes Physical Exam - Physical Exam General Appearance: Present: alert, no apparent distress, obese Respiratory: Present: no respiratory distress, no accessory muscle use Cardiovascular/Chest: Present: normal peripheral pulses Extremity Exam: Present: normal except -, decreased range of motion - flexion, left knee, joint swelling - diffuse, mild, left knee, other - diffuse tenderness to palpation of left knee Neurological Exam: Present: alert, oriented, normal mood/affect, no motor/ sensory deficits Skin Exam: Present: normal color, warm/dry ED Progress - Vital Signs Patient's Vital Signs:: I have reviewed the patient's vital signs. Vital Signs: Vital Signs 12/30/16 15:24 Temperature 36.7 C Pulse Rate 89 Respiratory 19 Rate Blood Pressure 140/86 O2 Sat by Pulse 99 Oximetry - X-Ray X-Ray #1 X-Ray: knee Interpretation: Reviewed by me X-ray Comments: Technique: Left knee series (3 views) Comparison:None. Findings: No acute fracture or dislocation. Alignment is anatomic. Decreased osseous mineralization. There are moderate tricompartmental degenerative changes, greatest at the anterior compartment. No destructive osseous lesions. Small suprapatellar joint effusion. Joint spaces are maintained. Soft tissues are unremarkable. Impression: No acute osseous findings. Additional findings and comments are as above. Electronically signed by Shakir Garcia D.O.. - Progress/Reassessment Chief Complaint: Lower Extremity Pain/ Injury Progress:: Improved Departure Clinical Impression: Left knee sprain Qualifiers: Encounter type: initial encounter Involved ligament of knee: unspecified ligament Qualified Code(s): S83.92XA - Sprain of unspecified site of left knee, initial encounter - Departure Disposition: Home Follow Up Needed Condition: Good Instructions: Knee Sprain, [id number] Additional Instructions: Wear NARA wrap as needed for support Ice and elevate Follow up with orthopedics as needed Prescriptions: HYDROcodone/ACETAMINOPHEN [[place] 5-325] 1 - 2 tab PO Q6H PRN #12 tab PRN Reason: Pain
[2016-12-30] MEDS ORDERED: HYDROcodone/ACETAMINOPHEN 1 EACH TABLET ONE (16:50)
== END 2016-12-30 18:11 | disposition home or self-care (01) ==
LOC: ER 15:04
DX: S83.92XA Sprain of unspecified site of left knee, initial encounter (principal)

== ENCOUNTER 2017-03-18 14:31 | Emergency (ER) | payer OTHER ==
[2017-03-18 15:13] VITALS: BP 137/89
--- NOTE | 2017-03-18 15:58 | ERNOTE ---
Lower Extremity HPI - Narrative Date of Service: 03/18/17 - General Lower Extremities Pain: knee: left Time Seen by Provider: 03/18/17 15:56 Source: patient, RN notes reviewed, old records, other - [facility] database Exam Limitations: no limitations - Immun/Allergies/Home Medications Immunizations: IMMUNIZATION HX Immunizations Up to Date Yes History of Influenza Vaccine Yes Hx Pneumococcal Vaccination No Allergies/Adverse Reactions: Allergies Allergy/AdvReac Type Severity Reaction Status Date / Time codeine AdvReac Mild Nausea Verified 03/18/17 15:15 gabapentin AdvReac Mild Nausea Verified 03/18/17 15:15 ketorolac tromethamine AdvReac Mild Nausea Verified 03/18/17 15:15 [From Toradol] Home Medications: HOME MEDICATIONS Buspirone HCl 25 mg PO TID 06/20/16 [Last Taken Unknown] Cyclobenzaprine HCl [Flexeril] 10 mg PO DAILY 06/20/16 [Last Taken Unknown] Lisinopril [Zestril] 10 mg PO DAILY 06/20/16 [Last Taken Unknown] Omeprazole [Prilosec] 40 mg PO DAILY 06/20/16 [Last Taken Unknown] Venlafaxine HCl [Effexor Xr] 75 mg PO BID 06/20/16 [Last Taken Unknown] Albuterol Sulfate [Ventolin Hfa] 18 gm IH 12/30/16 [Last Taken Unknown] HYDROcodone/ACETAMINOPHEN [[place] 5-325] 1 - 2 tab PO Q6H PRN #12 tab 12/30/16 [ Last Taken Unknown] Spiriva 12/30/16 [Last Taken Unknown] Symbicort 80-4.5 Mcg Inhaler 12/30/16 [Last Taken Unknown] - History of Present Illness Narrative: Maria Luisa is a 56-year-old female who presents to the emergency Department by private vehicle for ongoing left knee pain. She was seen here for this by me just over 2 months ago. She had reported twisting her knee at that time and a history of prior knee injuries including a patella fracture. An x-ray was obtained at that visit and showed extensive arthritis as well as a small prepatellar effusion. She presents today with increased pain after again twisting the knee 2 or 3 days ago. She reports having an appointment with orthopedics at the [facility] for possible surgery next month. She also reports that she did not follow-up with orthopedics since she was last seen here. Upon review of her record from the [place] pharmacy database, it appears that she has been obtaining prescriptions for [place] from orthopedics at [facility]. She routinely takes meloxicam. She has been taking Tylenol in addition to this without improvement. She also reports that she has been wearing an Iván wrap periodically. Associated Symptoms: Denies: unable to bear weight, snapping, popping sensation , weakness Other Injuries: Reports: none Subsequent Symptoms: Denies: sensory loss, numbness Prior Treament: Reports: recently seen, similar symptoms before Review of Systems - Review of Systems Constitutional: Absent: recent illness, fever, chills EYE: Present: no symptoms reported ENT: Present: no symptoms reported Respiratory: Present: no symptoms reported Cardiology: Absent: chest pain, syncope, edema, claudication Gastrointestinal/Abdominal: Present: no symptoms reported Genitourinary: Present: no symptoms reported Musculoskeletal: Present: muscle pain, joint pain, joint swelling Skin: Absent: lesions, lumps, change in color Neurological: Absent: weakness, numbness, tingling Endocrine: Present: no symptoms reported Hematologic/Lymphatic: Present: no symptoms reported Psych: Present: no symptoms reported - Patient's Past Medical History Patient History - Medical: Arthritis, Obesity Patient History - Cardiac/Respiratory: Asthma Patient History - Cancer: No Hx of Cancer Patient History - Surgical Procedures: Tubal Ligation, Other Patient History - Other: None LMP (females 10-50): Menopausal - Social History Living Situations: spouse Abuse History: No History of abuse Psych History: Hx of Depression Smoking Status: Never smoker Alcohol Use: none Drug Use: none - Immunizations Immunizations Up to Date: Yes Hx Pneumococcal Vaccination: No History of Influenza Vaccine: Yes Physical Exam - Physical Exam General Appearance: Present: alert, no apparent distress, obese, other - Unkempt appearance Respiratory: Present: no respiratory distress, no accessory muscle use Cardiovascular/Chest: Present: normal peripheral pulses Extremity Exam: Present: normal except - - minimal amount of diffuse edema to left anterior knee, diffuse tenderness with palpation, other - no ecchymosis or deformity to left knee Neurological Exam: Present: alert, oriented, normal mood/affect, no motor/ sensory deficits Skin Exam: Present: normal color, warm/dry ED Progress - Vital Signs Patient's Vital Signs:: I have reviewed the patient's vital signs. Vital Signs: Vital Signs 03/18/17 15:08 Temperature 36.5 C Pulse Rate 87 Respiratory 16 Rate Blood Pressure 137/89 O2 Sat by Pulse 98 Oximetry - Progress/Reassessment Chief Complaint: Lower Extremity Pain/ Injury Progress:: Unchanged Plan - Plan Plan: The patient was asking for pain medication since she cannot take ibuprofen with her meloxicam and Tylenol is not working for her. She states that she did not follow up in orthopedics as she was instructed to at her last visit. Questioned patient regarding the numerous prescriptions she has obtained a [facility] in their orthopedic department for [place]. She denied being seen there initially, then acted confused, and then reported that maybe she had been there. One [place] tablet given here. Contacted orthopedics at [place] regarding the patient being here for pain medication when it appears that she is being seen there already. She had reported not having an appointment anywhere until next month at the [facility] about her knee. She actually is scheduled for surgery on her knee at [facility] later this month. Departure Clinical Impression: Knee pain, chronic Qualifiers: Laterality: left Qualified Code(s): M25.562 - Pain in left knee - Departure Disposition: Home Follow Up Needed Condition: Stable Instructions: Knee Pain, [id number] Additional Instructions: Wear IVÁN wrap for support Use heat on sore areas as needed Continue your current medications See orthopedics as scheduled
--- OUTSIDE RECORDS SUMMARY | 2017-03-18 16:03 | XMS REPORT | Continuity of Care Document ---
:1960 Author Organization [facility] ([facility]) Address [address] [place] [address] Phone [phone] Care Team Providers Name Role Phone Ford Holland Primary Care Provider [phone] Source Comments This disclosure is being made pursuant to the Care Everywhere program, applicable federal and state laws, and may not contain all informaitonavailable regarding this patient.[facility] ([facility]) Active Allergies and Adverse Reactions Allergen Noted [...] Taken Blood Pressure 130/78 10/17/2013 9:00 AM FEDERAL AGENT Pulse 100 10/17/2013 9:00 AM [employer]ERAL AGENT Temperature 36.3 C (97.3 F) 10/17/2013 9:00 AM FEDERAL AGENT Respiratory Rate 18 02/20/2011 11:00 AM CDT Height 1.721 m (5' 7.75") 04/15/2012 10:30 AM CDT Weight 113.218 kg (249 lb 9.6 oz) 10/17/2013 9:00 AM FEDERAL AGENT Body Mass Index 38.23 10/17/2013 9:00 AM FEDERAL AGENT Oxygen Saturation 95% 02/20/2011 11:00 AM CDT [...]
[2017-03-18] MEDS ORDERED: HYDROcodone/ACETAMINOPHEN 1 EACH TABLET PO ONE (16:21)
[2017-03-18] MEDS ORDERED: HYDROcodone/ACETAMINOPHEN 1 EACH TABLET ONE (16:34)
== END 2017-03-18 16:38 | disposition home or self-care (01) ==
LOC: ER 14:31
DX: M25.562 Pain in left knee (principal)